=== PATIENT | male | born 1945 | race Caucasian/White ===

== ENCOUNTER 2020-04-14 16:51 | Outpatient (CLI) | payer MEDICARE, OTHER, SELFPAY ==
--- NOTE | ~2020-04-14 | XR_ITS ---
EXAMINATION: XR foot RT min 3V DATE: 04/14/2020 17:29 INDICATION: Foot ulcer at the right great toe presenting with pain. TECHNIQUE: Dorsoplantar, two oblique and lateral views of the right foot foot were obtained. COMPARISON: None. FINDINGS: Hyperflexion at the right first interphalangeal joint. Alignment is otherwise normal. No fracture. Os teolysis consistent with osteomyelitis at the tuft of the right first distal phalanx. 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 Mild ost eoarthritis at many of the remaining joints in the right mid and forefoot. Moderate-sized Achilles an d plantar calcaneal spurs. IMPRESSION: 1. Osteomyelitis at the tuft of the right great toe. 2. 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 Reviewed, dictated and finalized at location A. LER
== END 2020-04-14 16:52 | disposition home or self-care (01) ==
LOC: CHSLAB 16:54
PROVIDERS: PCP Internal Medicine; Visit Provider Podiatrist
DX: E11.621 Type 2 diabetes mellitus with foot ulcer (principal)
CPT/HCPCS: 73630

== ENCOUNTER 2020-04-22 02:25 | Outpatient (CLI) | payer MEDICARE, OTHER, SELFPAY ==
[2020-04-22 18:45] LABS: SARS-CoV-2 RNA PCR Negative
== END 2020-04-22 02:26 | disposition home or self-care (01) ==
LOC: ANHCOVIDDT 02:25
PROVIDERS: PCP Internal Medicine; Visit Provider Podiatrist
DX: Z01.818 Encounter for other preprocedural examination (principal); Z20.828 Contact with and (suspected) exposure to other viral communicable diseases
CPT/HCPCS: 87635; C9803; U0003

== ENCOUNTER 2020-04-22 09:06 | Outpatient (CLI) | payer MEDICARE, OTHER, SELFPAY ==
--- NOTE | 2020-04-22 09:09 | ECG_ITS ---
Measurements Intervals [place] Rate: 104 P: 5 [place]: 185 QRS: 44 QRSD: 94 T: 115 QT: 350 QTc: 461 Interpretive Statements SINUS TACHYCARDIA MINIMAL Q WAVES- INFERIOR LEADS BORDERLINE ST-T WAVE ABNORMALITY- HIGH LATERAL LEADS BORDERLINE ECG Electronically Signed On 04-22-2020 10:39:16 DELIVERY TABLE OPERATOR by Enrike Sumner D.O.
[2020-04-22 10:00] LABS: Hematocrit 33.1 % (42.0-52.0); Hemoglobin 11.1 g/dL (14.0-18.0)
[2020-04-22 10:11] LABS: Prothrombin Time 13.4 Seconds (11.1-14.7)
[2020-04-22 10:12] LABS: Partial Thromboplastin Time 25.9 SECONDS (22.3-36.8)
[2020-04-22 10:14] LABS: Anion Gap 12 mmol/L (8-16); Blood Urea Nitrogen 42 mg/dL (9-20); Calcium 8.9 mg/dL (8.4-10.2); Carbon Dioxide 28 mmol/L (22-30); Chloride 95 mmol/L (98-107); Estimated Glomerular Filt Rate 9; Glucose 286 mg/dL (75-110); Potassium 4.8 mmol/L (3.4-5.0); Sodium 135 mmol/L (137-145)
== END 2020-04-22 09:07 | disposition home or self-care (01) ==
PROVIDERS: Anesthesiology; PCP Internal Medicine; Visit Provider Podiatrist
DX: E11.9 Type 2 diabetes mellitus without complications (principal); D64.9 Anemia, unspecified; I12.9 Hypertensive chronic kidney disease with stage 1 through stage 4 chronic kidney disease, or unspecified chronic kidney disease; N17.9 Acute kidney failure, unspecified; N18.9 Chronic kidney disease, unspecified; Z01.818 Encounter for other preprocedural examination
CPT/HCPCS: 36415; 80048; 85014; 85018; 85610; 85730; 87635; 93005; C9803; U0003

== ENCOUNTER 2020-04-25 01:46 | Day surgery (SDC) | payer MEDICARE, OTHER, SELFPAY ==
[2020-04-20 09:46] VITALS: BMI 39.0
[2020-04-25 12:28] VITALS: BP 127/60; PULSE 65; RESP 20; TEMP 37; O2SAT 95
[2020-04-25] MEDS: SODIUM CHLORIDE 0.9% IV 500 ML 30 ML IV CONT (13:10)
[2020-04-25 13:22] LABS: Anion Gap 13 mmol/L (8-16); Blood Urea Nitrogen 69 mg/dL (9-20); Calcium 8.6 mg/dL (8.4-10.2); Carbon Dioxide 26 mmol/L (22-30); Chloride 94 mmol/L (98-107); Estimated CRCL calculation 8 ml/min; Estimated Glomerular Filt Rate 6; Glucose 119 mg/dL (75-110); Potassium 5.4 mmol/L (3.4-5.0); Sodium 133 mmol/L (137-145)
--- NOTE | 2020-04-25 13:51 | WPDANESEPPF ---
Anes - Initial Pre Proc Eval Procedure: Operation Date: 04/25/20 14:30 Proposed Procedures p Partial Amputation Of the Interphalangeal Joint Right Hallux - Emery Honeycutt DPM Date/Time: 04/25/20 13:51 Surgeon: Emery Honeycutt DPM Pre Op Diagnosis: Osteomyelitis Patient Data Age: 74 Gender: M Height: 1.75 m Weight: 114.7 kg Last Vital Signs Temp 37.0 C 04/25/20 12:28 Pulse 65 04/25/20 12:28 Resp 20 04/25/20 12:28 BP 127/60 04/25/20 12:28 Pulse Ox 95 04/25/20 12:28 Allergies Allergy/AdvReac Type Severity Reaction Status Date / Time No Known Allergies Allergy Verified 04/20/20 09:23 Home Medications Medication Instructions Recorded Confirmed Type Lantus U-100 Insulin 60 unit SUBCUT QAM 03/26/19 04/25/20 History atorvastatin [Lipitor] 40 mg PO DAILY 03/26/19 04/25/20 History insulin lispro [Humalog U-100 15 unit SUBCUT TID 03/26/19 04/25/20 History Insulin] isosorbide mononitrate 60 mg PO DAILY 03/26/19 04/25/20 History lisinopril [Zestril] 40 mg PO DAILY 03/26/19 04/25/20 History cephalexin 500 mg PO Q8HR #0 cap 03/29/19 04/25/20 Rx aspirin [Aspir-81] 81 mg PO DAILY 04/20/20 04/25/20 History coenzyme Q10 [Co Q-10] 100 mg PO DAILY 04/20/20 04/25/20 History folic acid 0.4 mg PO DAILY 04/20/20 04/25/20 History dvhkrxjjrwdz-tmpqvzxf-bpkngr 1 tablet PO DAILY 04/20/20 04/25/20 History [Multivitamin 50 Plus] ropinirole 0.5 mg PO HS 04/20/20 04/25/20 History sevelamer carbonate 1,600 mg PO TID 04/20/20 04/25/20 History Laboratory Tests 04/25/20 12:57 Sodium 133 mmol/L L mmol/L (137-145) Potassium 5.4 mmol/L H mmol/L (3.4-5.0) Chloride 94 mmol/L L mmol/L (98-107) Carbon Dioxide 26 mmol/L mmol/L (22-30) Anion Gap 13 mmol/L mmol/L (8-16) BUN 69 mg/dL H D mg/dL (9-20) Creatinine 9.00 mg/dL H mg/dL (0.7-1.3) Estim Creat Clear Calc 8 ml/min ml/min Estimated GFR 6 L (59 - ) Glucose 119 mg/dL H mg/dL (75-110) Calcium 8.6 mg/dL mg/dL (8.4-10.2) Patient hx anesthesia problems: none Family hx anesthesia problems: none [facility] Past Medical History Medical History (Updated 04/25/20 @ 13:50 by Omi Collier DO) Acute kidney injury superimposed on CKD CAD (coronary artery disease) of bypass graft CKD stage 3 secondary to diabetes Diabetes Dialysis patient T, TH, Sat HTN (hypertension) Hyperlipidemia EVA (obstructive sleep apnea) Spinal cord compression unable to feel mid-calf and down bilaterally Surgical History Surgical History (System 08/07/19 @ 10:20 by Rhonda Mckeon) History of cataract surgery S/P CABG x 2 S/P CABG x 4 Family History Family History (System 08/07/19 @ 10:20 by Rhonda Mckeon) Father Acute myocardial infarction Mother Acute myocardial infarction Social History Social History (System 08/07/19 @ 10:20 by Rhonda Mckeon) Smoking status: Former smoker Second hand tobacco smoke exposure: No Additional smoking assessment comments: SMOKED 4 YEARS WHEN IN THE [employer] Alcohol intake: former Alcohol use details: DRANK SOCIALLY IN HIS 20'S Substance use: never Substance use type: does not use Living arrangements: with family Gender identity (if verbalized by the patient): Male Spiritual care concerns: No Agree to blood products: Yes Anes - Eval Final PreProcedure Day of Procedure 04/25/20 13:51 Patient weight: obese Heart: regular rate and rhythm and murmur Lungs: clear to auscultation and normal air movement Airway: Mallampati scale class III Neurological: alert and oriented Last oral intake: >/= 8 hours ASA classification: IV Emergent: no Anesthetic plan: proceed Anesthesia type and monitoring: general GIVS and standard monitoring Informed Consent: The patient's anesthetic plan and its attendant risks and benefits were discussed with the patient/family/POA. Questions were solicited and answers provided to the satisfa
--- NOTE | 2020-04-25 14:00 | PM.HPGS ---
History of Present Illness History of Present Illness Consent: Risks, benefits, and alternatives have been discussed and questions answered. Patient agrees to proceed with procedure. Chief complaint: Osteomyelitis Narrative: Jacob Rahman is a 74 year old male [facility] Past Medical History Medical History (Updated 04/25/20 @ 14:01 by Emery Honeycutt DPM) Acute kidney injury superimposed on CKD CAD (coronary artery disease) of bypass graft CKD stage 3 secondary to diabetes Diabetes Dialysis patient T, TH, Sat HTN (hypertension) Hyperlipidemia EVA (obstructive sleep apnea) Spinal cord compression unable to feel mid-calf and down bilaterally Surgical History Surgical History (System 08/07/19 @ 10:20 by Rhonda Mckeon) History of cataract surgery S/P CABG x 2 S/P CABG x 4 Family History Family History (System 08/07/19 @ 10:20 by Rhonda Mckeon) Father Acute myocardial infarction Mother Acute myocardial infarction Social History Social History (System 08/07/19 @ 10:20 by Rhonda Mckeon) Smoking status: Former smoker Second hand tobacco smoke exposure: No Additional smoking assessment comments: SMOKED 4 YEARS WHEN IN THE [employer] Alcohol intake: former Alcohol use details: DRANK SOCIALLY IN HIS 20'S Substance use: never Substance use type: does not use Living arrangements: with family Gender identity (if verbalized by the patient): Male Spiritual care concerns: No Agree to blood products: Yes Meds Home Medications and Allergies Home Medications Medication Instructions Recorded Confirmed Type Lantus U-100 Insulin 60 unit SUBCUT QAM 03/26/19 04/25/20 History atorvastatin [Lipitor] 40 mg PO DAILY 03/26/19 04/25/20 History insulin lispro [Humalog U-100 15 unit SUBCUT TID 03/26/19 04/25/20 History Insulin] isosorbide mononitrate 60 mg PO DAILY 03/26/19 04/25/20 History lisinopril [Zestril] 40 mg PO DAILY 03/26/19 04/25/20 History cephalexin 500 mg PO Q8HR #0 cap 03/29/19 04/25/20 Rx aspirin [Aspir-81] 81 mg PO DAILY 04/20/20 04/25/20 History coenzyme Q10 [Co Q-10] 100 mg PO DAILY 04/20/20 04/25/20 History folic acid 0.4 mg PO DAILY 04/20/20 04/25/20 History kkixihmcrwsz-gcsfmbca-mtaaow 1 tablet PO DAILY 04/20/20 04/25/20 History [Multivitamin 50 Plus] ropinirole 0.5 mg PO HS 04/20/20 04/25/20 History sevelamer carbonate 1,600 mg PO TID 04/20/20 04/25/20 History Allergies Allergy/AdvReac Type Severity Reaction Status Date / Time No Known Allergies Allergy Verified 04/20/20 09:23 Vital Signs Vital Signs - 24 hr 04/25/20 12:28 Temperature 37.0 C Pulse Rate 65 Respiratory Rate 20 Blood Pressure 127/60 Pulse Oximetry 95 Assessment and Plan Assessment and plan (1) Osteomyelitis of ankle and foot: Code(s): M86.9 - Osteomyelitis, unspecified Status: Acute Assessment and Plan: Osteomyelitis, right hallux Plan for partial amputation, right hallux.
[2020-04-25] MEDS: ceFAZolin 2 GM/D5W 50 ML 2 GM/50 ML BAG IVPB (14:26)
[2020-04-25] MEDS: LIDOCAINE HCL 1% LOCAL INJ 10 ML VIAL 20 ML INFILTRATE (14:35)
--- NOTE | 2020-04-25 14:54 | SUR.OPER ---
Injection of right foot per Dr. Honeycutt at 1435. total 20ml of local mix.
--- NOTE | 2020-04-25 15:22 | P.OP_ITS ---
Procedure Note - Detailed Date of procedure: 04/25/20 Pre-op diagnosis: Osteomyelitis Surgeon: Surgeon: Emery Honeycutt DPM Slope Hoist Operator: none Preop diagnosis: 1. Osteomyelitis, right hallux 2. DMII with ulceration/cellulitis Postop diagnosis: same Procedure: Partial amputation, right hallux Anesthesia: Local Hemostasis: Ankle TQ 225 mmHg EBL: 5cc Materials: 4-0 prolene Injectables: 20cc of a 1:1 mixture of 1% lidocaine plain and 0.5% marcaine plain Specimen: 1. Distal phalanx, right hallux. 2. Clearance fragment (head of proximal phalanx of hallux) Procedure in detail: Under mild sedation patient was brought in the operating room placed on the operative table supine position. Well-padded pneumatic ankle tourniquet was then placed about the patient's right ankle. Local anesthesia was injected about the patient's right 1st ray in a Anderson block fashion utilizing a total 20 cc of a 1 1 mixture of 1% lidocaine plain and 0.5% Marcaine plain. Foot was then scrubbed prepped and draped in usual aseptic manner. An Esmarch bandage was utilized to exsanguinate the patient's foot. Pneumatic ankle tourniquet was inflated to 225 mmHg. Utilizing a sharp sterile 15 blade the distal aspect of the right hallux was carefully disarticulated at the level of the IPJ. Please note that the base of the distal phalanx was noted to be fragmented and nonviable, soft upon examination. The soft tissue and bone which is encompassed by these 2 semielliptical incisions was carefully passed from the field to be sent for specimen labeled distal phalanx right hallux. All nonviable soft tissue was then carefully debrided and removed from the field. The head of the proximal phalanx was then carefully resected, utilizing a sagittal saw to be sent for specimen labeled clearance fragment. Please note that upon using the sagital saw, the head of the proximal phalanx was noted to be hard and viable. No deep abscess was observed upon final examination. All remaining soft tissue and bone was noted to be healthy and viable. The wound was then flushed with copious amounts normal sterile saline. Four 0 Prolene was used to reapproximate the superficial skin. Upon completion of the procedure incision was dressed with Xeroform and covered with sterile compressive dressing consisting of 4x4s Kerlix and Coban. The pneumatic ankle tourniquet was deflated and a prompt hyperemic response was noted to the remaining digits of the right foot. Patient transferred to recovery room with vital signs stable and vascular status intact to the right foot. Following a period of postoperative monitoring the patient will be discharged home.
[2020-04-25 15:25] VITALS: BP 125/45; PULSE 92; RESP 14; O2SAT 97
[2020-04-25 15:50] LABS: Glucose Point of Care 78 (65-105)
[2020-04-25 16:00] VITALS: BP 131/46; PULSE 90; RESP 16
[2020-04-25 16:15] VITALS: BP 134/59; PULSE 89; RESP 16
== END 2020-04-25 16:35 | disposition home or self-care (01) ==
PROVIDERS: Anesthesiology; PCP Internal Medicine; Visit Provider Podiatrist
PROC: (CPT 28825; principal; 2020-04-25 14:30)
DX: E11.69 Type 2 diabetes mellitus with other specified complication (principal); M86.8X7 Other osteomyelitis, ankle and foot; E11.621 Type 2 diabetes mellitus with foot ulcer; L97.519 Non-pressure chronic ulcer of other part of right foot with unspecified severity; I12.9 Hypertensive chronic kidney disease with stage 1 through stage 4 chronic kidney disease, or unspecified chronic kidney disease; E11.22 Type 2 diabetes mellitus with diabetic chronic kidney disease; N18.30 Chronic kidney disease, stage 3 unspecified; E78.5 Hyperlipidemia, unspecified; I25.10 Atherosclerotic heart disease of native coronary artery without angina pectoris; G47.33 Obstructive sleep apnea (adult) (pediatric); G95.20 Unspecified cord compression; Z99.2 Dependence on renal dialysis; Z79.4 Long term (current) use of insulin; Z79.82 Long term (current) use of aspirin; Z79.1 Long term (current) use of non-steroidal anti-inflammatories (NSAID); Z87.891 Personal history of nicotine dependence; E66.9 Obesity, unspecified; Z68.37 Body mass index [BMI] 37.0-37.9, adult
CPT/HCPCS: 28825; 36415; 80048; 88304; 88305; 88309; 88311; J0690; J2405; J2704; J7040

== ENCOUNTER 2020-06-10 13:31 | Emergency (ER) | payer MEDICARE, SELFPAY ==
--- NOTE | ~2020-06-10 | XR_ITS ---
EXAMINATION: XR chest 1V portable DATE: 06/10/2020 14:18 INDICATION: Weakness. TECHNIQUE: A single frontal view of the chest was obtained on 2 radiographs. COMPARISON: Chest single view 03/26/2019 FINDINGS: The chest demonstrates clear lungs without pneumonia, pleural effusion, or pneumothorax. Th e heart size is normal. Median sternotomy wires and mediastinal surgical clips are seen, likely from prior coronary artery bypass grafting. IMPRESSION: 1. No acute cardiopulmonary disease. Reviewed, dictated and finalized at location A. ND OPERATOR
[2020-06-10 13:35] VITALS: BP 110/51; PULSE 100; RESP 20; TEMP 36.8; O2SAT 100
--- NOTE | 2020-06-10 13:40 | ED.WEAKNESS ---
HPI - Weakness General Chief complaint: Weakness Stated complaint: ambulance Time Seen by Provider: 06/10/20 13:41 Source: patient Mode of arrival: EMS Limitations: no limitations History of Present Illness HPI Narrative: 74ar-old man with a history of chronic kidney disease on dialysis, diabetes, hypertension and spinal cord compression comes in today by EMS with a complaint of weakness. Patient states that he has been getting around at home using a walker but today was weak and unable to get off the toilet. States he sat there for 45 minutes. He has diabetic neuropathy of the lower extremities bilaterally and was recently treated for right foot osteomyelitis and had a great toe amputation. His has been caring for him at home since [facility]. He denies any chest pain, cough, shortness breath, leg pain, focal weakness, confusion, nausea, vomiting, diarrhea or fever. He denies any sick or COVID exposures. MD Complaint: generalized weakness Onset (ago): hour(s) (1) Duration: constant Location: generalized Migration: none Severity: moderate Relieving factors: none Exacerbating factors: none Associated symptoms: denies other symptoms Related Data Home Medications Medication Instructions Recorded Confirmed Lantus U-100 Insulin 60 unit SUBCUT QAM 03/26/19 06/10/20 atorvastatin [Lipitor] 40 mg PO DAILY 03/26/19 06/10/20 insulin lispro [Humalog U-100 15 unit SUBCUT TIDWMEAL 03/26/19 06/10/20 Insulin] isosorbide mononitrate 30 mg PO DAILY 03/26/19 06/10/20 aspirin [Aspir-81] 81 mg PO DAILY 04/20/20 06/10/20 coenzyme Q10 [Co Q-10] 100 mg PO DAILY 04/20/20 06/10/20 folic acid 0.4 mg PO DAILY 04/20/20 06/10/20 xepscnfocnqq-rstzghbb-zuxktu 1 tablet PO DAILY 04/20/20 06/10/20 [Multivitamin 50 Plus] ropinirole 0.5 mg PO HS 04/20/20 06/10/20 sevelamer carbonate [Renvela] 1,600 mg PO TIDWMEAL 04/20/20 06/10/20 carvedilol 3.125 mg PO BID 06/10/20 06/10/20 Allergies Allergy/AdvReac Type Severity Reaction Status Date / Time No Known Allergies Allergy Verified 04/20/20 09:23 Review of Systems Constitutional: Constitutional: Denies chills, Denies fever(s) and Reports weakness Eyes: Eyes: Denies change in vision and Denies photophobia ENT: Denies dysphagia, Denies nasal congestion and Denies sore throat Cardiovascular: Cardiovascular: Denies chest pain and Denies radiating jaw, neck or arm pain Respiratory: Respiratory: Denies cough and Denies dyspnea Gastrointestinal: Gastrointestinal: Denies abdominal pain, Denies diarrhea, Denies nausea and Denies vomiting Genitourinary: Genitourinary: Reports oliguria, Denies dysuria and Denies urinary frequency Musculoskeletal: Musculoskeletal: Denies arthralgias and Denies joint swelling Integumentary/Breasts: Skin/Breast: Denies pruritus, Denies erythema and Denies rash Neurologic: Denies vertigo, Denies dizziness and Denies syncope Hematologic/Lymphatic: Hematologic/Lymphatic: Denies easy bleeding and Denies easy bruising Allergic/Immunologic: Allergic/Immunologic: Denies lip swelling and Denies throat swelling PMFSH Past Medical History Medical History Acute kidney injury superimposed on CKD CAD (coronary artery disease) of bypass graft CKD stage 3 secondary to diabetes Diabetes Dialysis patient T, TH, Sat HTN (hypertension) Hyperlipidemia EVA (obstructive sleep apnea) Spinal cord compression unable to feel mid-calf and down bilaterally Surgical History Surgical History History of cataract surgery S/P CABG x 2 S/P CABG x 4 Family History Family History (System 08/07/19 @ 10:20 by Rhonda Mckeon) Father Acute myocardial infarction Mother Acute myocardial infarction Social History Social History Smoking status: Former smoker Second hand tobac
--- NOTE | 2020-06-10 13:48 | ECG_ITS ---
Measurements Intervals [place] Rate: 91 P: 15 [place]: 192 QRS: 44 QRSD: 90 T: 114 QT: 372 QTc: 458 Interpretive Statements SINUS RHYTHM WITH SINUS ARRHYTHMIA INCOMPLETE RIGHT BUNDLE BRANCH BLOCK NONSPECIFIC ST & T-WAVE ABNORMALITY- HIGH LATERAL LEADS BASELINE ARTIFACT- II, III, AVR, AVL, AVF BORDERLINE ECG Electronically Signed On 06-10-2020 16:46:45 FACSIMILE MACHINE OPERATOR by Enrike Sumner D.O.
[2020-06-10 14:29] LABS: Basophils Absolute Auto 0.02 K/mm3 (0.00-0.10); Basophils Percent Auto 0.2 % (0.0-1.0); Eosinophils Absolute Auto 0.07 K/mm3 (0.02-0.50); Eosinophils Percent Auto 0.8 % (1.0-6.0); Hemoglobin 11.2 g/dL (12.4-15.3); Immature Granulocyte Absolute 0.03 K/mm3 (0.00-0.00); Immature Granulocyte Percent A 0.3 % (0.0-0.0); Lymphocytes Absolute Auto 1.54 K/mm3 (1.10-4.50); Lymphocytes Percent Auto 16.7 % (18.0-42.0); Mean Corpuscular HGB Conc 33.9 g/dL (32.0-36.0); Mean Corpuscular Hemoglobin 35.4 pg (27.0-31.0); Mean Corpuscular Volume 104.4 fL (78.0-102.0); Monocytes Absolute Auto 1.14 K/mm3 (0.10-0.90); Monocytes Percent Auto 12.3 % (2.0-11.0); Neutrophils Absolute Auto 6.4 K/mm3 (1.7-7.2); Neutrophils Percent Auto 69.7 % (50.0-70.0); Platelet Count Result 191 K/mm3 (150-420); Red Blood Count 3.16 M/mm3 (4.70-6.10); Red Cell Distribution Width 15.5 % (11.6-14.4); White Blood Count 9.2 K/mm3 (4.8-10.8)
[2020-06-10 14:48] LABS: Lactic Acid Reflex 1.8 mmol/L (0.4-2.0)
[2020-06-10 14:50] LABS: Alanine Aminotransferase 15 U/L (16-63); Albumin Level 3.4 g/dL (3.4-5.0); Alkaline Phosphatase 113 U/L (46-116); Anion Gap 12 mmol/L (8-16); Aspartate Amino Transferase 13 U/L (15-37); Bilirubin,Total 0.7 mg/dL (0.00-1.00); Blood Urea Nitrogen 35 mg/dL (7-18); CRP 0.7 mg/dL (0.0-0.9); Calcium 8.9 mg/dL (8.5-10.1); Carbon Dioxide 26 mmol/L (21-32); Chloride 96 mmol/L (98-108); Creatine Kinase 85 U/L (39-308); Estimated CRCL calculation 14 ml/min; Estimated Glomerular Filt Rate 10; Glucose 186 mg/dL (70-99); Osmolality Calculated 291 mOsm/kg (285-295); Potassium 4.7 mmol/L (3.5-5.1); Sodium 134 mmol/L (136-145); Total Protein 7.8 g/dL (6.4-8.2)
[2020-06-10 14:51] LABS: Troponin I 15.7 ng/L (0.00-60.4)
--- NOTE | 2020-06-10 14:52 | PC.NURSE ---
PT notified per ERP request for pt. evaluation and care coordination here to speak c pt and to discuss POC and home care situation.
[2020-06-10 15:18] LABS: INR 0.9; Prothrombin Time 10.1 Seconds (9.64-11.0)
--- NOTE | 2020-06-10 15:49 | PC.NURSE ---
Call placed to Dr. Lozada, nephrology office for Dr. Gaitan per request to talk c him and consult. Will await callback from Dr. Lozada.
[2020-06-10 15:59] LABS: Partial Thromboplastin Time 21.7 SEC (23.90-30.70)
--- NOTE | 2020-06-10 16:13 | PC.NURSE ---
Call placed back to Dr. Lozada office, transferred to speak c Dr. Gaitan for consult.
--- NOTE | 2020-06-10 16:26 | PC.NURSE ---
Call placed to [facility] for possible pt. transfer for dialysis and admission.
--- NOTE | 2020-06-10 16:58 | PCCCNOTE ---
Patient lives with and is usually able to ambulate with walker- assists care as able. Patient also recieving dialysis at [facility] in [place] at 11;45 on Saturday- and Saturday. Patient states now feels unable to stand on right leg- which seemed to be weaker the last 2 days and gave out today. Was unable to get up from the toilet. and patient feel he needs rehab to get stronger and not sure they can return home without help. PT rolly done- report from Prabhakar Keith who states patient ambulated well- but c/o pain with using steps. Patient has 3-4 steps into home. Patient usually uses [facility] transport for dailysis. Call to 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 Call to Jordana at [facility]- ability to transport to dialysis would be on a case by case basis. states is familiar with [place]- call to [facility] at [place]-for [place] and [place]- - states they would be able to accept-in [place] building on waiver- but would have to transport to Dialysis until patient could be transitioned to [facility]. After he is transitioned they would provided transportation. Spoke with who advised she doesn't even know where [place] is- and this would not be a good solution for her. states she does have her brother to assist with getting patient in and out of house for tomorrow if needed- patient states does not feel he is strong enoiugh to do so. ER staff provided with information regarding [place]'s address and phone # of [facility] for possible placement need. Dr Gaitna is considering transfer to hospital that can accommodate his dialysis needs.
[2020-06-10 17:32] VITALS: BP 120/54; PULSE 95; RESP 20; O2SAT 100
--- NOTE | 2020-06-10 17:48 | PC.NURSE ---
Call back from Dr. Vizcaino, technical associate to speak c Dr. Gaitan. Will accept consult and transfer. Paperwork signed by pt. for transfer.
--- NOTE | 2020-06-10 18:50 | PC.NURSE ---
Report to Zaina RN
--- NOTE | 2020-06-10 18:55 | PC.NURSE ---
oriented to new care givers.
[2020-06-10 19:25] LABS: Glucose Point of Care 97 (65-105)
[2020-06-10 19:33] VITALS: BP 120/60; PULSE 90; RESP 18; TEMP 36.6; O2SAT 100
--- NOTE | 2020-06-10 19:33 | PC.NURSE ---
gave patient a sandwich & diet soda
--- NOTE | 2020-06-10 20:10 | PC.NURSE ---
Called [facility] to check on bed status, cont to attempt to find a room
[2020-06-10 21:00] VITALS: BP 120/70; PULSE 90; RESP 16; TEMP 36.8; O2SAT 100
== END 2020-06-10 21:02 | disposition short-term general hospital (02) ==
PROVIDERS: Emergency Provider Emergency Medicine; PCP Internal Medicine
DX: R53.1 Weakness (principal); N18.6 End stage renal disease; Z99.2 Dependence on renal dialysis; I25.10 Atherosclerotic heart disease of native coronary artery without angina pectoris; E11.9 Type 2 diabetes mellitus without complications; I12.9 Hypertensive chronic kidney disease with stage 1 through stage 4 chronic kidney disease, or unspecified chronic kidney disease; E78.5 Hyperlipidemia, unspecified; Z87.891 Personal history of nicotine dependence; Z79.4 Long term (current) use of insulin
CPT/HCPCS: 36415; 71045; 80053; 82550; 82948; 83605; 84484; 85025; 85610; 85730; 86140; 87040; 93005; 97161; 99285; J1815

== ENCOUNTER 2020-07-11 14:53 | Outpatient (CLI) | payer MEDICARE, SELFPAY ==
--- NOTE | ~2020-07-11 | US_ITS ---
EXAMINATION: US arterial ankle brachial ind EXAM DATE: 07/11/2020 15:38 INDICATION: Peripheral arterial disease Legs. Right great toe amputated. TECHNIQUE: Segmental pressures and plethysmographic and Doppler waveforms of the brachial and lower e xtremity arteries were obtained. Correlation is made to Lower extremity arterial velocity evaluation 12/28/2016 FINDINGS: Right brachial artery pressure of 118 mmHg. The left was not obtained, reportedly dialysis graft in dylan rojas. RIGHT LEG: The ankle-brachial index (SUSANNAH) is could not obtain (normal >= 0.9-1). The great toe-brachial index (TBI) is could not obtain (normal >= 0.65). The lower extremity ratios, segmental pressure gradients as follows; Dorsalis pedis: Could not obtain ( mmHg). Posterior tibial: Could not obtain ( mmHg). (Normal gradients <= 20-30 mmHg between adjacent levels on the same leg or the same levels on the two legs). Arterial waveforms are monophasic. LEFT LEG: The ankle-brachial index (SUSANNAH) is could not obtain (normal >= 0.9-1). The great toe-brachial index (TBI) is could not obtain (normal >= 0.65). The lower extremity ratios, segmental pressure gradients as follows; Dorsalis pedis: Could not obtain ( mmHg). Posterior tibial: Could not obtain ( mmHg). (Normal gradients <= 20-30 mmHg between adjacent levels on the same leg or the same levels on the two legs). Arterial waveforms are biphasic DP, monophasic PT. IMPRESSION: Could not obtain ankle brachial indices. Reviewed, dictated and finalized at location A. X MACHINE MECHANIC
== END 2020-07-11 14:54 | disposition home or self-care (01) ==
PROVIDERS: PCP Internal Medicine; Visit Provider Internal Medicine
DX: I73.9 Peripheral vascular disease, unspecified (principal)
CPT/HCPCS: 93922

== ENCOUNTER 2020-12-12 13:47 | Outpatient (RCR) | payer MEDICARE, SELFPAY ==
--- NOTE | 2020-12-12 15:02 | PTOPEVAL ---
Thank you for referring Jacob Rahman to [facility].? The patient is scheduled to be seen for therapy? ____x/week for ___ weeks. Please review, sign, date and return this plan of care TREVON. I agree with and certify that the following plan of care is medically necessary. Referring Physician Date Admitting Provider: Attending Provider: [place] Referring Provider: *PT Outpatient Evaluation Start: 12/12/20 13:52 Freq: Status: Active Protocol: Document 12/12/20 13:52 ACR (Rec: 12/12/20 15:02 ACR [id number]) Therapy Assessment Status Assessment Status Assessment Status Evaluation Outpatient Past Medical History Neurological History Hx Other Neurological Disorders Yes: UNABLE TO FEEL MID-CALF & DOWN BILAT R/T BACK SURG/ SPINAL CORD COMPRESSION Cardiovascular History Hx Cardiac Surgery Yes Hx Congestive Heart Failure Yes Hx Coronary Artery Bypass Graft Yes: CABG X2 1999 & 2004 Hx Hypercholesterolemia Yes Hx Hypertension Yes Hx Myocardial Infarction Yes: AT 33 YEARS OLD Hx Vascular Surgery Yes: 05/2019 SURG TO CLEAR CLOT IN LT LOWER ARM DIALYSIS [facility] Hx Other Cardiac Disorders Yes: DR FERRIS PLANNED VISIT 04/26/20 Respiratory History Hx Chronic Obstructive Pulmonary Disease Yes (COPD) Hx Sleep Apnea Yes Hx Other Respiratory Disorders Yes: DEEP COUGH IN THE MORNING Gastrointestinal History Hx Gastroesophageal Reflux Disease Yes: AT TIMES Genitourinary History Hx Renal Disease Yes: CHRONIC RENAL FAILURE + ACUTE RENAL FAILURE Musculoskeletal History Hx Back Injury Yes Hx Crutches or Walker Use Yes: CURRENTLY USES WALKER Query Text:If Yes, Enter Crutches, Walker, or Both in the Comment Hx Orthopedic Surgery Yes: Rt. great toe amputation Hx Spinal Surgery Yes: LOWER BACK SURGERY Hematological History Hx Anemia Yes: R/T RENAL DISEASE HX- TRANSFUSIONS Hx Blood Transfusions Yes: 05/2019 Endocrine History Hx Diabetes Yes HEENT History Hx Cataracts Yes: BILAT IMPLANTS Hx Tonsillectomy Yes: CHILD Integumentary History Hx Other Skin Disorders Yes: OSTEOMYELITIS RT GREAT TOE, DEEP SCRATCH RT ARM Reproductive History Hx Reproductive Disorders No Significant History Psychosocial History Hx Anxiety Yes: MILD Hx Depression Yes: MILD Pain History Has Past Pain Affected Your Daily Life Yes: JODI
--- NOTE | 2021-01-02 11:53 | PTOPEVAL ---
Thank you for referring Jacob Rahman to [facility].? The patient is scheduled to be seen for therapy? ____x/week for ___ weeks. Please review, sign, date and return this plan of care TREVON. I agree with and certify that the following plan of care is medically necessary. Referring Physician Date Admitting Provider: Attending Provider: El Leon Referring Provider: *PT Outpatient Evaluation Start: 12/12/20 13:52 Freq: Status: Active Protocol: Document 01/02/21 10:02 ACR (Rec: 01/02/21 11:07 ACR [id number]) Therapy Assessment Status Assessment Status Assessment Status Evaluation Outpatient Past Medical History Neurological History Hx Other Neurological Disorders Yes: UNABLE TO FEEL MID-CALF & DOWN BILAT R/T BACK SURG/ SPINAL CORD COMPRESSION Cardiovascular History Hx Cardiac Surgery Yes Hx Congestive Heart Failure Yes Hx Coronary Artery Bypass Graft Yes: CABG X2 1999 & 2004 Hx Hypercholesterolemia Yes Hx Hypertension Yes Hx Myocardial Infarction Yes: AT 33 YEARS OLD Hx Vascular Surgery Yes: 05/2019 SURG TO CLEAR CLOT IN LT LOWER ARM DIALYSIS FISTULA Hx Other Cardiac Disorders Yes: DR FERRIS PLANNED VISIT 04/26/20 Respiratory History Hx Chronic Obstructive Pulmonary Disease Yes (COPD) Hx Sleep Apnea Yes Hx Other Respiratory Disorders Yes: DEEP COUGH IN THE MORNING Gastrointestinal History Hx Gastroesophageal Reflux Disease Yes: AT TIMES Genitourinary History Hx Renal Disease Yes: CHRONIC RENAL FAILURE + ACUTE RENAL FAILURE Musculoskeletal History Hx Back Injury Yes Hx Crutches or Walker Use Yes: CURRENTLY USES WALKER Query Text:If Yes, Enter Crutches, Walker, or Both in the Comment Hx Orthopedic Surgery Yes: Rt. great toe amputation Hx Spinal Surgery Yes: LOWER BACK SURGERY Hematological History Hx Anemia Yes: R/T RENAL DISEASE HX- TRANSFUSIONS Hx Blood Transfusions Yes: 05/2019 Endocrine History Hx Diabetes Yes HEENT History Hx Cataracts Yes: BILAT IMPLANTS Hx Tonsillectomy Yes: CHILD Integumentary History Hx Other Skin Disorders Yes: OSTEOMYELITIS RT GREAT TOE, DEEP SCRATCH RT ARM Reproductive History Hx Reproductive Disorders No Significant History Psychosocial History Hx Anxiety Yes: MILD Hx Depression Yes: MILD Pain History Has Past Pain Affected Your Daily Life Yes: JODI
--- NOTE | 2021-02-13 11:06 | PTOPEVAL ---
Thank you for referring Jacob Rahman to [facility].? The patient is scheduled to be seen for therapy? ____x/week for ___ weeks. Please review, sign, date and return this plan of care TREVON. I agree with and certify that the following plan of care is medically necessary. Referring Physician Date Admitting Provider: Attending Provider: El Leon Referring Provider: *PT Outpatient Evaluation Start: 12/12/20 13:52 Freq: Status: Active Protocol: Document 02/13/21 10:05 ACR (Rec: 02/13/21 11:06 ACR [id number]) Therapy Assessment Status Assessment Status Assessment Status Discharge Outpatient Past Medical History Neurological History Hx Other Neurological Disorders Yes: UNABLE TO FEEL MID-CALF & DOWN BILAT R/T BACK SURG/ SPINAL CORD COMPRESSION Cardiovascular History Hx Cardiac Surgery Yes Hx Congestive Heart Failure Yes Hx Coronary Artery Bypass Graft Yes: CABG X2 1999 & 2004 Hx Hypercholesterolemia Yes Hx Hypertension Yes Hx Myocardial Infarction Yes: AT 33 YEARS OLD Hx Vascular Surgery Yes: 05/2019 SURG TO CLEAR CLOT IN LT LOWER ARM DIALYSIS FISTULA Hx Other Cardiac Disorders Yes: DR FERRIS PLANNED VISIT 04/26/20 Respiratory History Hx Chronic Obstructive Pulmonary Disease Yes (COPD) Hx Sleep Apnea Yes Hx Other Respiratory Disorders Yes: DEEP COUGH IN THE MORNING Gastrointestinal History Hx Gastroesophageal Reflux Disease Yes: AT TIMES Genitourinary History Hx Renal Disease Yes: CHRONIC RENAL FAILURE + ACUTE RENAL FAILURE Musculoskeletal History Hx Back Injury Yes Hx Crutches or Walker Use Yes: CURRENTLY USES WALKER Query Text:If Yes, Enter Crutches, Walker, or Both in the Comment Hx Orthopedic Surgery Yes: Rt. great toe amputation Hx Spinal Surgery Yes: LOWER BACK SURGERY Hematological History Hx Anemia Yes: R/T RENAL DISEASE HX- TRANSFUSIONS Hx Blood Transfusions Yes: 05/2019 Endocrine History Hx Diabetes Yes HEENT History Hx Cataracts Yes: BILAT IMPLANTS Hx Tonsillectomy Yes: CHILD Integumentary History Hx Other Skin Disorders Yes: OSTEOMYELITIS RT GREAT TOE, DEEP SCRATCH RT ARM Reproductive History Hx Reproductive Disorders No Significant History Psychosocial History Hx Anxiety Yes: MILD Hx Depression Yes: MILD Pain History Has Past Pain Affected Your Daily Life Yes: BACK
== END 2021-02-13 13:40 | disposition home or self-care (01) ==
LOC: CHSPT 13:47
DX: M17.11 Unilateral primary osteoarthritis, right knee (principal)
CPT/HCPCS: 97014; 97110; 97161; 97530; G0283

== ENCOUNTER → 2021-04-26 19:53 | Outpatient (CLI) | payer MEDICARE, SELFPAY ==
--- NOTE | 2021-05-03 16:42 | WPDSLEEPSTUD ---
Sleep Study Date of Study: 04/26/21 Ordering Provider: Lizzy Medina MD Interpreting Physician: Marylu Milligan MD Sleep Study Type: Split Polysomnogram Height: 1.75 m Weight: 117.934 kg Body Mass Index: 38.4 Neck Circumference (inches): 18.5 [place]: 6 Reason for Sleep Study Recall on his BiPAP machine; last titration was > 5 years ago * 03/27/2019 - echo - EF 60-65% * 02/26/2019- basic sleep study; low sleep efficiency 23.9%, AHI 12.1, no REM was present;limb movements 223.9/hour; repeat titration was recommended; no additional sleep study results. * 10/03/2008- AHI 98.5; ASV BiPAP titration with final pressure of inspiratory pressure minimum 15, inspiratory max pressure 25, expiratory pressure 15 and back up rate 16. * 09/02/2008- Severe complex sleep apnea AHI 98.5 and severe periodic limb movement disorder, PLM index 120; desaturation to 72%, failed CPAP titration Sleep History Jacob Rahman is a 75 year old man with severe complex sleep apnea who has a BiPAP machine which has been recalled due to potential health risks. He has not been having any problems using his machine. His current settings are not known. His BMI is lower now compared to his last sleep study in Feb 2019 when his BMI was 44.6. He has a history of severe complex sleep apnea with an AHI of 98.5 with desaturation to 22% and low sleep efficiency, poor response to CPAP and eventual ASV for treatment. He also had severe periodic limb movement disorder with 120 limb movements per hour in 2008 and 223/hour in Feb 2019. He reports 100 lb weight loss in the last year. He is now on hemodialysis. He does not awaken from sleep feeling short of breath. He occasionally awakens at night with heartburn, belching or coughing. He occasionally snores and occasionally it is loud enough for others to complain about it. He does not have trouble sleeping with a cold and does not wake up gasping for breath at night. He rarely has breathing problems at night observed by others. He does not sweat excessively at night or notice his heart pounding or beating irregularly at night. He occasionally falls asleep during the day, never involuntarily. He does not have loss of muscle tone with strong emotion. He is retired therefore does not have daytime difficulties due to excessive sleepiness. He does not feel paralyzed on waking or falling asleep and does not have vivid dreamlike scenes upon awakening or falling asleep. He does not feel afraid to go to sleep. He does not have nightmares. He rarely remembers his dreams. He does not feel sad, depressed or anxious. He does not have muscular tension. He occasionally notices parts of his body jerking and occasional kicking at night. He does not have crawling or aching feelings in his legs. He occasionally has leg pain at night. He does not have morning jaw pain. He does not grind his teeth during sleep. He occasionally is bothered by pain during the day, occasionally awakened by pain at night. He occasionally wakes up feeling stiff in the morning with sore achy muscles and pain in the neck and spine. He is retired. He has headaches and fatigue. Normal bedtime is 10:30 p.m. taking 30-45 minutes fall asleep typically waking 2 or 3 times at night to go to the bathroom. He wakes the morning at 7:00 a.m.. His weekend schedule is the same. He estimates getting 5-6 hours of sleep at night. He takes naps in the afternoon or evening. A short nap 10 or 15 minutes may be refreshing. He feels better in the morning compared to other times of day. Using BiPAP at night he does awaken feeling refreshed. Habits: Quit tobacco 41 years ago. He does consume caffeine. He does not drink alcohol or use recreational drugs PMFSH Past Medical History Medical History (Updated 05/08/21 @ 12:07 by Marylu Milligan MD) Acute kidney injury superimposed on CKD CAD (coronary artery disease) of bypass graft CKD stage 3 secondary to diabetes Complex sleep apnea sy
[2021-05-08 12:08] VITALS: BMI 38.4
== END ==
PROVIDERS: PCP Internal Medicine; Visit Provider Internal Medicine
DX: G47.33 Obstructive sleep apnea (adult) (pediatric) (principal)
CPT/HCPCS: 95811

== ENCOUNTER 2021-05-26 10:42 | Outpatient (CLI) | payer MEDICARE, SELFPAY ==
--- NOTE | ~2021-05-26 | XR_ITS ---
EXAMINATION: XR chest 2V DATE: 05/26/2021 16:25 INDICATION: Cough. TECHNIQUE: Frontal and lateral views of the chest were obtained. COMPARISON: Chest single view 06/10/2020 FINDINGS: The chest demonstrates clear lungs without pneumonia, pleural effusion, or pneumothorax. Th e heart size is normal. Median sternotomy wires and mediastinal surgical clips are seen, likely from prior coronary artery bypass grafting. IMPRESSION: 1. No acute cardiopulmonary disease. Reviewed, dictated and finalized at location B. [facility]ET[facility]
[2021-05-26 11:38] LABS: Influenza Control Valid (Valid); SARS-CoV-2 Ag Negative (Negative)
[2021-05-26 16:24] LABS: Hematocrit 29.9 % (37.0-46.0); Mean Corpuscular HGB Conc 33.4 g/dL (32.0-36.0); Mean Corpuscular Hemoglobin 35.1 pg (27.0-31.0); Mean Corpuscular Volume 104.9 fL (78.0-102.0); Mean Platelet Volume 9.5 fl (8.7-11.0); Platelet Count Result 201 K/mm3 (150-420); Red Blood Count 2.85 M/mm3 (4.70-6.10); Red Cell Distribution Width 15.1 % (11.6-14.4); White Blood Count 5.1 K/mm3 (4.8-10.8)
[2021-05-26 16:37] LABS: Alanine Aminotransferase 15 U/L (16-63); Albumin Level 3.3 g/dL (3.4-5.0); Alkaline Phosphatase 148 U/L (46-116); Anion Gap 12 mmol/L (8-16); Aspartate Amino Transferase < 10 U/L (15-37); Bilirubin,Total 0.4 mg/dL (0.00-1.00); Blood Urea Nitrogen 49 mg/dL (7-18); Calcium 8.5 mg/dL (8.5-10.1); Carbon Dioxide 26 mmol/L (21-32); Chloride 97 mmol/L (98-108); Estimated Glomerular Filt Rate 7; Glucose 102 mg/dL (70-99); NT Pro B Type Natriuretic Pept 3722 pg/mL (0-450); Osmolality Calculated 293 mOsm/kg (285-295); Potassium 4.9 mmol/L (3.5-5.1); Sodium 135 mmol/L (136-145); Total Protein 7.8 g/dL (6.4-8.2)
[2021-05-26 17:03] LABS: Band Neutrophils Percent 0 % (0-6); Basophils Percent Manual 0 % (0-1); Eosinophils Percent Manual 4 % (1-6); Lymphocytes Absolute Manual 0.91 K/mm3 (1.1-4.5); Lymphocytes Percent Manual 18 % (18-44); Monocytes Absolute Manual 1.42 K/mm3 (0.1-0.90); Monocytes Percent Manual 28 % (3-9); Neutrophils Absolute Manual 2.55 K/mm3 (1.3-6.7); Neutrophils Percent Manual 50 % (46-73); Platelet Estimate Adequate (Adequate); Total Cells Counted 100
== END 2021-05-26 10:43 | disposition home or self-care (01) ==
PROVIDERS: PCP Internal Medicine; Visit Provider Internal Medicine
DX: R05.9 Cough, unspecified (principal); I50.9 Heart failure, unspecified; J06.9 Acute upper respiratory infection, unspecified; Z20.822 Contact with and (suspected) exposure to COVID-19
CPT/HCPCS: 36415; 71046; 80053; 83880; 85025; 87081; 87426; 87804; 87880; C9803

== ENCOUNTER 2021-07-05 08:28 | Outpatient (CLI) | payer MEDICARE, SELFPAY ==
--- NOTE | 2021-07-05 08:35 | ECHO_ITS ---
Patient Info Name: Jacob Rahman Age: 75 years : 1945 Gender: Male Ht: 70 in Wt: 255 lbs BSA: 2.43 m2 HR: 93 bpm BP: 140 / 75 mmHg Technical Quality: Poor Exam Date: 07/05/2021 9:22 AM Exam Location: [facility] Patient Status: Outpatient Admit Date: 07/05/2021 Staff Ordering Physician: Lizzy Medina MD Nurse School: [employer] Attending Provider: Lizzy Medina MD Referring Physician: Adam PAGE; Exam Type: CA echo doppler color flow Study Info Indications I51.9 - Heart disease, unspecified Complete two-dimensional, color flow and Doppler transthoracic echocardiogram is performed. Summary 1. Complete two-dimensional, color flow and Doppler transthoracic echocardiogram is performed. 2. Technically suboptimal study due to poor sonographic images. Patient did not consent to definity. 3. Left ventricular systolic function is normal, estimated at 55-60%. No obvious wall motion abnormalities but cannot assess for regional wall motion abnormalities. 4. Left ventricular chamber dimension is normal. 5. The left ventricular diastolic function is grade I diastolic dysfunction. 6. Left atrial chamber dimension is mildly enlarged. 7. There is moderate aortic valve sclerosis. 8. There is mild aortic valve stenosis with a peak velocity of 220 cm/s, mean gradient of 12 mmHg, and aortic valve area of 2.0 cm2. 9. The mitral valve has moderately calcified annulus. Left Ventricle Technically suboptimal study due to poor sonographic images. Patient did not consent to definity. Tissue doppler is not performed. Left ventricular systolic function is normal, estimated at 55-60%. No obvious wall motion abnormalities but cannot assess for regional wall motion abnormalities. Left ventricular chamber dimension is normal. The left ventricular diastolic function is grade I diastolic dysfunction. Right Ventricle Right ventricular systolic function is normal based on a normal TAPSE 1.7 cm. Right ventricular chamber dimension is not well visualized. Left Atria Left atrial chamber dimension is mildly enlarged. Right Atria Right atrial chamber dimension is normal. Aortic Valve The aortic valve is not well visualized. Cannot determine number of aortic valve leaflets. There is moderate aortic valve sclerosis. There is mild aortic valve stenosis with a peak velocity of 220 cm/s, mean gradient of 12 mmHg, and aortic valve area of 2.0 cm2. There is no aortic valve regurgitation. Pulmonic Valve There is no pulmonic regurgitation. Mitral Valve The mitral valve has moderately calcified annulus. There is no mitral valve stenosis. There is no mitral valve regurgitation. Tricuspid Valve There is no tricuspid valve regurgitation. Pericardium/Pleural There is no pericardial effusion. Inferior Vena Cava Normal inferior vena cava with >50% collapse upon inspiration consistent with normal right atrial pressure, 5 mmHg. Aorta The aortic root size at the sinus of Valsalva is not well visualized. Left Ventricular Outflow Tract Name Value Normal LVOT 2D LVOT Diameter 2.0 cm LVOT Doppler LVOT Peak Velocity
== END 2021-07-05 08:29 | disposition home or self-care (01) ==
PROVIDERS: PCP Internal Medicine; Visit Provider Internal Medicine
DX: I50.9 Heart failure, unspecified (principal)
CPT/HCPCS: 93306

== ENCOUNTER 2021-09-02 15:26 | Emergency (ER) | payer MEDICARE, SELFPAY ==
--- NOTE | ~2021-09-02 | XR_ITS ---
EXAM: XR thoracic spine 2V HISTORY: FALL/BACK PAIN COMPARISON: None available FINDINGS: Severe osteopenia. Vertebral body heights and alignment maintained. Multilevel disc space narrowing and marginal osteophytosis. Partially visualized lung parenchyma is clear. Intact sternotom y wires. Mediastinal vascular clips. IMPRESSION: No acute osseous finding in the thoracic spine. Reviewed, dictated and finalized at location K.
--- NOTE | ~2021-09-02 | XR_ITS ---
EXAM: XR lumbar spine 2-3V HISTORY: fall with low back pain COMPARISON: None available FINDINGS: 5 nonrib-bearing lumbar-type vertebral bodies with intact pedicles. 2 mm anterolisthesis o f L4 on L5, likely on a degenerative basis. Mild height loss and both superior and inferior endplate irregularity involving L2. Minimal, presumed physiologic wedging at the thoracolumbar junction. Multi level facet arthropathy and interspinous narrowing. Multilevel lumbar degenerative disc disease. Abdo megan aortic calcification without evident aneurysm. IMPRESSION: Acute versus chronic mild compression fracture at L2, correlate with acute pain/tenderness. Reviewed, dictated and finalized at location K. IMPRESSION: Acute versus chronic mild compression fracture at L2, correlate with acute pain /tenderness.
[2021-09-02 15:35] VITALS: BP 132/68; PULSE 68; RESP 20; TEMP 36.4; O2SAT 99
--- NOTE | 2021-09-02 16:08 | ED.BACK ---
HPI - Back Pain/Injury General Chief Complaint: Back Pain/Injury Stated Complaint: back pain Time Seen by Provider: 09/02/21 16:48 Source: patient History of Present Illness HPI Narrative: 75-year-old male with a history of hypertension, diabetes mellitus, coronary artery disease status post CABG, end-stage renal disease on hemodialysis via left arm AV fistula, COPD, EVA, periodically leg movements, arthritis, spinal cord compression, Status post low back surgery x2, was attempting to walk when he slipped and fell backwards this morning. He then went on to get dialysis. He developed -- low back pain which radiates around his trunk -- pain in the interscapular region. No head injury. No other injuries noted. MD elicited complaint: back pain Pertinent past history: prior back pain and back surgery Onset (ago): hour(s) ( 8 hours ago) Timing: constant Pain scale (0-10): 6 Similar Symptoms Previously: No Quality: aching Location: lumbar spine and thoracic spine Radiation: none Exacerbating factors: movement Relieving factors: immobilization Associated symptoms: denies other symptoms Related Data Home Medications Medication Instructions Recorded Confirmed Lantus U-100 Insulin 60 unit SUBCUT QAM 03/26/19 09/02/21 atorvastatin [Lipitor] 40 mg PO DAILY 03/26/19 09/02/21 insulin lispro [Humalog U-100 15 unit SUBCUT TIDWMEAL 03/26/19 09/02/21 Insulin] isosorbide mononitrate 30 mg PO DAILY 03/26/19 09/02/21 aspirin [Aspir-81] 81 mg PO DAILY 04/20/20 09/02/21 coenzyme Q10 [Co Q-10] 100 mg PO DAILY 04/20/20 09/02/21 folic acid 0.4 mg PO DAILY 04/20/20 09/02/21 qyvoupujyrzr-mtqphxba-nltmey 1 tablet PO DAILY 04/20/20 09/02/21 [Multivitamin 50 Plus] ropinirole 0.5 mg PO HS 04/20/20 09/02/21 sevelamer carbonate [Renvela] 1,600 mg PO TIDWMEAL 04/20/20 09/02/21 carvedilol 3.125 mg PO BID 06/10/20 09/02/21 Allergies Allergy/AdvReac Type Severity Reaction Status Date / Time No Known Allergies Allergy Verified 04/20/20 09:23 Review of Systems Review of Systems: All systems reviewed & are unremarkable except as noted in HPI and below Constitutional: Constitutional: Reports as per HPI and Reports no additional constitutional complaints Eyes: Eyes: Reports as per HPI and Reports no additional eye complaints ENT: Reports system reviewed and no additional complaints, except as documented and Reports as per HPI Cardiovascular: Cardiovascular: Reports as per HPI and Reports no additional cardiovascular complaints Respiratory: Respiratory: Reports as per HPI and Reports no additional respiratory complaints Gastrointestinal: Gastrointestinal: Reports as per HPI and Reports no additional gastrointestinal complaints Genitourinary: Comments: Patient makes minimal urine. Musculoskeletal: Comments: Low back pain in the interscapular region Integumentary/Breasts: Skin/Breast: Reports system reviewed and no additional complaints, except as docu and Reports as per HPI Neurologic: Reports system reviewed and no additional complaints, except as documented and Reports as per HPI Psychiatric: Psychiatric: Reports no additional psychiatric complaints Endocrine: Endocrine: Reports no additional endocrine complaints and Reports as per HPI Hematologic/Lymphatic: Hematologic/Lymphatic: Reports no additional hematologic/lymphatic complaints and Reports as per HPI Allergic/Immunologic: Allergic/Immunologic: Reports no additional allergic/immunologic complaints and Reports as per HPI [facility] Past Medical History Medical History Acute kidney injury superimposed on CKD CAD (coronary artery disease) of bypass graft CKD stage 3 secondary to diabetes Complex sleep apnea syndrome (~2008) COPD (chronic obstructive pulmonary disease) Diabetes Dialysis patient T, TH, Sat HTN (hypertension) Hyperlipidemia Spinal cord compression unable to feel mid-calf and down bilaterally Surgi
[2021-09-02 17:13] LABS: Glucose Point of Care 147 mg/dl (65-105)
[2021-09-02] MEDS: HYDROcodone/acetaminophen (*CRX) 5-325 MG TABLET 1 TAB PO (18:08)
[2021-09-02 18:12] VITALS: BP 124/63; PULSE 63; RESP 20; TEMP 36.3; O2SAT 97
== END 2021-09-02 18:17 | disposition home or self-care (01) ==
PROVIDERS: Emergency Provider Internal Medicine Critical Care Medicine; PCP Internal Medicine
DX: M54.9 Dorsalgia, unspecified (principal); S32.020A Wedge compression fracture of second lumbar vertebra, initial encounter for closed fracture; M54.50 Low back pain, unspecified; I10 Essential (primary) hypertension; E11.9 Type 2 diabetes mellitus without complications; I25.10 Atherosclerotic heart disease of native coronary artery without angina pectoris; W19.XXXA Unspecified fall, initial encounter; Z87.891 Personal history of nicotine dependence
CPT/HCPCS: 72070; 72100; 82948; 99283; A9270

== ENCOUNTER 2021-12-16 07:06 | Emergency (ER) | payer MEDICARE, SELFPAY ==
--- NOTE | ~2021-12-16 | XR_ITS ---
XR pelvis 1-2V DATE: 12/16/2021 07:40 INDICATION: Hip pain due to leg cramps. TECHNIQUE: AP projection, 2 views COMPARISON: None FINDINGS: The patient was reportedly combative and the technologist was unable to obtain optimal radi ographs. The lateral aspect of the right iliac crest is excluded. Normal alignment at the pubic symphysis and sacroiliac joints. No pelvic fracture or bone destruction . Hip joint spaces are symmetric and relatively preserved. No obvious fracture or dislocation is evid ent at either hip. IMPRESSION: Limited examination; no apparent fracture, dislocation or bone destruction is noted Reviewed, dictated and finalized at location A. IMPRESSION: Limited examination; no apparent fracture, dislocation or bone dest ruction is noted
--- NOTE | ~2021-12-16 | XR_ITS ---
XR chest 1V portable DATE: 12/16/2021 07:39 INDICATION: Positive d-dimer. Volume overload. Leg cramps. TECHNIQUE: Portable AP chest on 12/16/2021 at 0739 hours COMPARISON: 05/26/2021 PA and lateral views FINDINGS: Status post sternotomy. Surgical clips overlie the heart mediastinum. No pulmonary infiltra te or consolidation, pleural effusion or pulmonary vascular congestion or pneumothorax. IMPRESSION: No active cardiopulmonary disease Reviewed, dictated and finalized at location A.
--- NOTE | ~2021-12-16 | CT_ITS ---
EXAMINATION: CTA chest PE protocol DATE: 12/16/2021 08:36 INDICATION: Positive d-dimer TECHNIQUE: Computed tomography angiography (CTA) of the chest was performed with 100 mL Omnipaque-350 intravenous contrast timed to evaluate the pulmonary arteries. Coronal maximum intensity projection 3D-reconstructions were created by the technologist. Automated exposure control and iterative reconst ruction technique were employed. Exam dose: 1060.66 mGy-cm total exam DLP. COMPARISON: 12/16/2021 portable AP chest FINDINGS: There is diagnostic contrast enhancement of the pulmonary arteries and no evidence of pulmo nary embolism. There is aortic and coronary artery calcification. Status post sternotomy. Heart size is within rosie l limits. No hilar or mediastinal mass lesion or lymphadenopathy. There are occasional scattered focal small infiltrates, more prominent in the left lower lobe, which may represent focal areas of infection. A calcified pulmonary granulomas dose per second in each lowe r lobe. Normal morphology of the adrenal glands. Numerous small stones are noted in the dependent aspect of the gallbladder. No gallbladder wall thick ening or pericholecystic fluid or fat stranding. Diffuse idiopathic skeletal hyperostosis of the thoracic and lumbar spine. No suspicious osteolytic o r osteoblastic lesions are noted. IMPRESSION: Occasional focal bilateral infiltrates, most prominent in the left lower lobe Old pulmonary granulomatous disease No evidence of pulmonary embolism Reviewed, dictated and finalized at [facility]. Reviewed, dictated and finalized at location [facility].
--- NOTE | 2021-12-16 07:16 | ED.WEAKNESS ---
HPI - Weakness General Chief complaint: Extremity Injury, Lower Stated complaint: ambulance Time Seen by Provider: 12/16/21 07:17 Source: patient Mode of arrival: EMS History of Present Illness HPI Narrative: 76-year-old male with a history of hypertension, dyslipidemia, coronary artery disease status post CABG in 2003, 2004, end-stage renal disease on hemodialysis, periodic leg movement, EVA, COPD, chronic low back pain status post back surgery, arthritis with chronic right knee pain, polyneuropathy presents to the ER with -- he has slid out of bed but did not sustain any injuries -- chronic hip and right knee pain -- cramps in his thighs -- generalized weakness the patient denied any fever. No chest pain or shortness of breath. The patient has been getting his dialysis Saturday/ / Saturday on a regular basis. MD Complaint: generalized weakness Onset (ago): week(s) Duration: constant Location: generalized Relieving factors: none Exacerbating factors: none Associated symptoms: myalgias Related Data Home Medications Medication Instructions Recorded Confirmed atorvastatin 40 mg tablet (Lipitor) 40 mg PO DAILY 03/26/19 12/16/21 insulin glargine 100 unit/mL 60 unit subcut QAM 03/26/19 12/16/21 subcutaneous solution (Lantus U-100 Insulin) insulin lispro 100 unit/mL 15 unit subcut TIDWMEAL 03/26/19 12/16/21 subcutaneous solution (Humalog U-100 Insulin) aspirin 81 mg tablet,delayed 81 mg PO DAILY 04/20/20 12/16/21 release coenzyme Q10 100 mg capsule (Co 100 mg PO DAILY 04/20/20 12/16/21 Q-10) folic acid 400 mcg tablet 0.4 mg PO DAILY 04/20/20 12/16/21 hmiwksamgkxj-ntxngvqm-agdjjj 1 tablet PO DAILY 04/20/20 12/16/21 tablet (Multivitamin 50 Plus tablet) ropinirole 0.5 mg tablet 0.5 mg PO HS 04/20/20 12/16/21 sevelamer carbonate 800 mg tablet 1,600 mg PO BID 04/20/20 12/16/21 (Renvela) carvedilol 3.125 mg tablet 3.125 mg PO BID 06/10/20 12/16/21 vitamin B complex-vitamin C-folic 1 tablet PO DAILY 12/16/21 12/16/21 acid 0.8 mg tablet (Haydee-Kelly) Allergies Allergy/AdvReac Type Severity Reaction Status Date / Time No Known Allergies Allergy Verified 12/16/21 07:28 Review of Systems Review of Systems: All systems reviewed & are unremarkable except as noted in HPI and below Constitutional: Constitutional: Reports as per HPI and Reports no additional constitutional complaints Eyes: Eyes: Reports as per HPI and Reports no additional eye complaints ENT: Reports system reviewed and no additional complaints, except as documented and Reports as per HPI Cardiovascular: Cardiovascular: Reports as per HPI and Reports no additional cardiovascular complaints Respiratory: Respiratory: Reports as per HPI and Reports no additional respiratory complaints Gastrointestinal: Gastrointestinal: Reports as per HPI and Reports no additional gastrointestinal complaints Genitourinary: Genitourinary: Reports no additional male genitourinary complaints Comments: anuric Musculoskeletal: Musculoskeletal: Reports no additional musculoskeletal complaints, Reports as per HPI, Reports myalgias, Reports arthralgias and Reports muscle cramps Integumentary/Breasts: Skin/Breast: Reports system reviewed and no additional complaints, except as docu and Reports as per HPI Comments: skin tear over his right elbow. Bruises of his upper extremity. AV fistula left forearm. Neurologic: Reports system reviewed and no additional complaints, except as documented and Reports as per HPI Psychiatric: Psychiatric: Reports no additional psychiatric complaints and Reports as per HPI Endocrine: Endocrine: Reports no additional endocrine complaints and Reports as per HPI Hematologic/Lymphatic: Hematologic/Lymphatic: Reports no additional hematologic/lymphatic complaints and Reports as per HPI Allergic/Immunologic: Allergic/Immunologic: Reports no additional allergic/immunologic complaints and Reports as per HPI [facility]
--- NOTE | 2021-12-16 07:19 | ECG_ITS ---
Measurements Intervals [place] Rate: 92 P: 25 MN: 204 QRS: 65 QRSD: 136 T: 42 QT: 384 QTc: 477 Interpretive Statements SINUS RHYTHM RIGHT BUNDLE BRANCH BLOCK [120+ ms QRS DURATION, UPRIGHT V1, 40+ ms S IN I/aVL/V4/V5/V6] COMPARED TO ECG 06/10/2020 14:27:23 RIGHT BUNDLE-BRANCH BLOCK NOW PRESENT Electronically Signed On 12-17-2021 8:28:52 CDT by Fernando Brown M.D.
[2021-12-16 07:20] VITALS: BP 134/51; PULSE 92; RESP 20; TEMP 36.3; O2SAT 98
[2021-12-16 07:34] LABS: Basophils Absolute Auto 0.03 K/mm3 (0.00-0.10); Basophils Percent Auto 0.4 % (0.0-1.0); Eosinophils Absolute Auto 0.25 K/mm3 (0.02-0.50); Eosinophils Percent Auto 3.3 % (1.0-6.0); Hematocrit 31.8 % (37.0-46.0); Hemoglobin 10.4 g/dL (12.4-15.3); Immature Granulocyte Absolute 0.04 K/mm3 (0.00-0.00); Immature Granulocyte Percent A 0.5 % (0.0-0.0); Lymphocytes Absolute Auto 1.96 K/mm3 (1.10-4.50); Lymphocytes Percent Auto 25.7 % (18.0-42.0); Mean Corpuscular HGB Conc 32.7 g/dL (32.0-36.0); Mean Corpuscular Hemoglobin 34.1 pg (27.0-31.0); Mean Corpuscular Volume 104.3 fL (78.0-102.0); Mean Platelet Volume 9.1 fl (8.7-11.0); Monocytes Absolute Auto 0.97 K/mm3 (0.10-0.90); Monocytes Percent Auto 12.7 % (2.0-11.0); Neutrophils Absolute Auto 4.4 K/mm3 (1.7-7.2); Neutrophils Percent Auto 57.4 % (50.0-70.0); Platelet Count Result 221 K/mm3 (150-420); Red Blood Count 3.05 M/mm3 (4.70-6.10); Red Cell Distribution Width 14.9 % (11.6-14.4); White Blood Count 7.6 K/mm3 (4.8-10.8)
[2021-12-16 07:47] LABS: INR 0.9; Partial Thromboplastin Time 24.3 SEC (23.90-30.70); Prothrombin Time 10.4 Seconds (9.50-12.10)
[2021-12-16 07:55] LABS: Lactic Acid Reflex 2.4 mmol/L (0.4-2.0)
[2021-12-16 07:57] LABS: Alanine Aminotransferase 14 U/L (16-63); Albumin Level 3.3 g/dL (3.4-5.0); Alkaline Phosphatase 127 U/L (46-116); Anion Gap 13 mmol/L (8-16); Aspartate Amino Transferase 10 U/L (15-37); Bilirubin,Total 0.4 mg/dL (0.00-1.00); Blood Urea Nitrogen 49 mg/dL (7-18); Calcium 8.6 mg/dL (8.5-10.1); Carbon Dioxide 25 mmol/L (21-32); Chloride 98 mmol/L (98-108); Estimated CRCL calculation 10 ml/min; Estimated Glomerular Filt Rate 7; Glucose 114 mg/dL (70-99); NT Pro B Type Natriuretic Pept 2869 pg/mL (0-450); Osmolality Calculated 296 mOsm/kg (285-295); Potassium 5.1 mmol/L (3.5-5.1); Sodium 136 mmol/L (136-145); Total Protein 7.5 g/dL (6.4-8.2)
[2021-12-16 08:01] LABS: D Dimer 1.38 mg/L (0.19-0.50)
[2021-12-16 09:45] LABS: Glucose Point of Care 84 mg/dl (65-105)
[2021-12-16 10:07] LABS: Creatine Kinase 81 U/L (39-308)
[2021-12-16 10:30] VITALS: BP 126/45; PULSE 88; RESP 20; TEMP 36.7; O2SAT 98
[2021-12-16 10:31] LABS: Reflex Lactic Acid Yes or No Add Lactic
== END 2021-12-16 10:35 | disposition home or self-care (01) ==
PROVIDERS: Emergency Provider Internal Medicine Critical Care Medicine; PCP Internal Medicine
DX: R53.1 Weakness (principal); R25.2 Cramp and spasm; D64.9 Anemia, unspecified; N18.6 End stage renal disease; Z99.2 Dependence on renal dialysis; I12.0 Hypertensive chronic kidney disease with stage 5 chronic kidney disease or end stage renal disease; E78.5 Hyperlipidemia, unspecified; J44.9 Chronic obstructive pulmonary disease, unspecified; E11.9 Type 2 diabetes mellitus without complications; Z87.891 Personal history of nicotine dependence
CPT/HCPCS: 36415; 71045; 71275; 72170; 80053; 82550; 82948; 83605; 83880; 84484; 85025; 85380; 85610; 85730; 93005; 99284; Q9967

== ENCOUNTER 2021-12-19 09:16 | Emergency (ER) | payer MEDICARE, SELFPAY ==
--- NOTE | ~2021-12-19 | CT_ITS ---
EXAMINATION: CTA abd aorta runoff DATE: 12/19/2021 10:58 INDICATION: Bilateral thigh pain. TECHNIQUE: Computed tomographic angiography (CTA) of the abdominal, pelvis, and both lower extremitie s was performed with 150 mL Omnipaque-350 intravenous contrast. Automated exposure control and iterat mekhi reconstruction technique were employed. The dose-length product was 1758.90 mGy-cm. Maximum inten sity projection 3D-reconstructions of the arteries were created by the technologist on a separate wor kstation. COMPARISON: CT abdomen and pelvis 11/10/2013 FINDINGS: ABDOMINAL AORTA AND ITS BRANCHES: Abdominal aorta is normal in caliber. There is no significant stenosis of celiac axis, superior mesen teric artery, the renal arteries, or inferior mesenteric artery. PELVIC VASCULATURE: There is no significant stenosis of the common carotid arteries, external iliac arteries, or internal iliac arteries. RIGHT LOWER EXTREMITY VASCULATURE: There is no significant stenosis of right common femoral artery, profunda femoral artery, superficial femoral artery, popliteal artery, tibioperoneal trunk, anterior tibial artery, posterior tibial irma ry, or peroneal artery. LEFT LOWER EXTREMITY VASCULATURE: There is no significant stenosis of left common femoral artery, profunda femoral artery, superficial femoral artery, popliteal artery, tibioperoneal trunk, anterior tibial artery, posterior tibial arter y, or peroneal artery. ADDITIONAL FINDINGS: The visualized portions of the lung bases demonstrate mild atelectasis. There are tree-in-bud and lloyd undglass opacities in left lower lobe, consistent with mild pneumonia. No pleural effusion. The heart size is normal. There are coronary artery calcifications. There are calcifications of aortic valve. There are changes of coronary artery bypass grafting. No pericardial effusion. The liver and spleen a re normal. There are gallstones in the gallbladder, which is normal in size. The pancreas and adrenal glands are normal. There is cortical thinning of the kidneys. Stool distends the rectum. The appendi x is normal. There are no pathologically enlarged lymph nodes. There is subcutaneous edema in the low er limbs, left worse than right. There is fatty muscle atrophy in the lower limbs, left worse than ri ght. IMPRESSION: 1. No significant arterial occlusive disease. Bilateral three-vessel runoff. 2. Mild left lower lobe pneumonia. Reviewed, dictated and finalized at location [facility].
[2021-12-19 09:16] VITALS: BP 152/59; PULSE 83; RESP 14; TEMP 35.9; O2SAT 100
--- NOTE | 2021-12-19 09:34 | ED.FALL ---
HPI - Fall General Chief Complaint: Fall Stated Complaint: FALL Time Seen by Provider: 12/19/21 09:25 Source: patient, EMS and RN notes reviewed Mode of arrival: EMS Limitations: no limitations History of Present Illness HPI Narrative: Patient was here 2 days ago for same complaint. Today he had severe cramping in his bilateral thighs while he was coming out of the house. When the pain hit him his right knee gave out which is also not new. He said then he fell. Initially the call for EMS was for lift assist only but then patient stated that the severe cramping was present in his thighs and he wanted to come to the emergency room. When he was here 2 days ago with the cramping in the weakness he had a CT PE study, EKG, CMP, CBC. Only thing found was his chronic kidney failure. Patient was supposed to go to dialysis today. MD complaint: fall Onset (ago): minute(s) (1) Fall witnessed: yes, by family Place fall occurred: home Loss of consciousness: none Prolonged down time: yes Symptoms prior to fall: other (thigh pain) Context: history of frequent falls Location of injury: other (no new injury) Severity: moderate Quality: spasming Associated symptoms (after fall): denies Related Data Home Medications Medication Instructions Recorded Confirmed atorvastatin 40 mg tablet (Lipitor) 40 mg PO DAILY 03/26/19 12/19/21 insulin glargine 100 unit/mL 60 unit subcut QAM 03/26/19 12/19/21 subcutaneous solution (Lantus U-100 Insulin) insulin lispro 100 unit/mL 15 unit subcut TIDWMEAL 03/26/19 12/19/21 subcutaneous solution (Humalog U-100 Insulin) aspirin 81 mg tablet,delayed 81 mg PO DAILY 04/20/20 12/19/21 release coenzyme Q10 100 mg capsule (Co 100 mg PO DAILY 04/20/20 12/19/21 Q-10) folic acid 400 mcg tablet 0.4 mg PO DAILY 04/20/20 12/19/21 feukuishrtgg-gmulpxhd-ewhnyu 1 tablet PO DAILY 04/20/20 12/19/21 tablet (Multivitamin 50 Plus tablet) ropinirole 0.5 mg tablet 0.5 mg PO HS 04/20/20 12/19/21 sevelamer carbonate 800 mg tablet 1,600 mg PO BID 04/20/20 12/19/21 (Renvela) carvedilol 3.125 mg tablet 3.125 mg PO BID 06/10/20 12/19/21 vitamin B complex-vitamin C-folic 1 tablet PO DAILY 12/16/21 12/19/21 acid 0.8 mg tablet (Haydee-Kelly) Allergies Allergy/AdvReac Type Severity Reaction Status Date / Time No Known Allergies Allergy Verified 12/19/21 09:25 Review of Systems Review of Systems: All systems reviewed & are unremarkable except as noted in HPI and below PMFSH Past Medical History Medical History Acute kidney injury superimposed on CKD CAD (coronary artery disease) of bypass graft CKD stage 3 secondary to diabetes Complex sleep apnea syndrome (~2008) COPD (chronic obstructive pulmonary disease) Diabetes Dialysis patient T, TH, Sat HTN (hypertension) Hyperlipidemia Spinal cord compression unable to feel mid-calf and down bilaterally Surgical History Surgical History History of cataract surgery S/P CABG x 2 S/P CABG x 4 Status post tonsillectomy Family History Family History Father Acute myocardial infarction Mother Acute myocardial infarction Social History Social History Smoking status: Former smoker Second hand tobacco smoke exposure: No Additional smoking assessment comments: SMOKED 4 YEARS WHEN IN [employer] Alcohol intake: former Alcohol use details: DRANK SOCIALLY IN HIS 20'S Substance use: never Substance use type: does not use Gender identity (if verbalized by the patient): Male Spiritual care concerns: No Agree to blood products: Yes Exam Const: General: no acute distress and alert Nutritional Appearance: well nourished and obese morbidly obese Orientation/consciousness: patient oriented x3 Limitations: no limitations HENMT: H
--- NOTE | 2021-12-19 09:50 | PC.NURSE ---
AT BEDSIDE. PT REPORTS 'NUMBNESS' TO LEGS AT THIS TIME, DENIES PAIN. PT REPORTS THIS IS NOT NEW. PT AND ARE AWARE OF PLAN OF CARE. CALL LIGHT AT BEDSIDE. PT IS AWAITING CT AT THIS TIME. WILL CONTINUE TO MONITOR.
--- NOTE | 2021-12-19 10:33 | PC.NURSE ---
NIR REMOVED, PT PLACED IN GOWN. TO CT AT THIS TIME.
--- NOTE | 2021-12-19 11:02 | PC.NURSE ---
PT RETURNS FROM CT, AT BEDSIDE. DENIES NEEDS OR COMPLAINTS. WILL CONTINUE TO MONITOR.
--- NOTE | 2021-12-19 11:48 | PC.NURSE ---
[facility] CALLS AND STATES TO HAVE PT GO DIRECTLY TO DIALYSIS [place]. IS AWARE. PT IS ASSISTED WITH DRESSING AT THIS TIME.
[2021-12-19 11:49] VITALS: BP 132/67; PULSE 68; RESP 16; TEMP 36.7; O2SAT 98
--- NOTE | 2021-12-19 11:59 | PC.NURSE ---
PT ASSISTED TO WC AND POV PER RN AND TECH. PT IS LITTLE TO NO ASSISTANCE. PT HANGING ONTO STAFF, REFUSING TO LIFT LEGS.
== END 2021-12-19 11:55 | disposition home or self-care (01) ==
PROVIDERS: Emergency Provider Emergency Medicine; PCP Internal Medicine
DX: R25.2 Cramp and spasm (principal); E11.22 Type 2 diabetes mellitus with diabetic chronic kidney disease; I12.9 Hypertensive chronic kidney disease with stage 1 through stage 4 chronic kidney disease, or unspecified chronic kidney disease; N18.30 Chronic kidney disease, stage 3 unspecified; I25.10 Atherosclerotic heart disease of native coronary artery without angina pectoris; J44.9 Chronic obstructive pulmonary disease, unspecified; E78.5 Hyperlipidemia, unspecified; Z87.891 Personal history of nicotine dependence
CPT/HCPCS: 75635; 99284; Q9967

== ENCOUNTER 2021-12-22 09:49 | Outpatient (CLI) | payer MEDICARE, SELFPAY ==
--- NOTE | ~2021-12-22 | US_ITS ---
EXAMINATION: US venous doppler [facility] DATE: 12/22/2021 11:04 INDICATION: Lower limb edema and pain. TECHNIQUE: Grayscale ultrasound images without and with compression and Doppler ultrasound images of the bilateral lower extremity veins were obtained. COMPARISON: None. FINDINGS: The visualized portions of right common femoral vein, profunda (deep) femoral vein, femoral vein, pop liteal vein, peroneal veins, posterior tibial veins, and greater saphenous vein outflow are patent. The visualized portions of left common femoral vein, profunda femoral vein, femoral vein, popliteal v ein, peroneal veins, posterior tibial veins, and greater saphenous vein outflow are patent. IMPRESSION: 1. No deep venous thrombosis. Reviewed, dictated and finalized at location [facility].
== END 2021-12-22 09:50 | disposition home or self-care (01) ==
LOC: CHSIMG 09:52
PROVIDERS: PCP Internal Medicine; Visit Provider Internal Medicine
DX: M79.89 Other specified soft tissue disorders (principal)
CPT/HCPCS: 93970

== ENCOUNTER 2022-02-24 15:33 | Emergency (ER) | payer MEDICARE, SELFPAY ==
--- NOTE | ~2022-02-24 | XR_ITS ---
EXAM: XR pelvis 1-2V DATE: 02/24/2022 16:49 HISTORY: MULTIPLE FALLS. bilateral hip pain . COMPARISON: 12/16/2021. FINDINGS: Decreased mineralization. No fracture or dislocation. No lytic or blastic lesion. Degenera tive change in the lumbar spine. Bilateral hip osteoarthritis, worse on the right. Scattered pelvic e nthesopathy. No erosion or periosteal change. Surgical clips over the proximal leg soft tissues. Pelv ic phleboliths. IMPRESSION: No acute osseous finding in the pelvis. Reviewed, dictated and finalized at location [facility].
--- NOTE | ~2022-02-24 | XR_ITS ---
EXAMINATION: XR chest 1V Exam Date/Time: 02/24/2022 16:15 CDT HISTORY: cough Comparison: 12/16/2021. RESULT: Lines, tubes, and devices: Intact sternotomy wires. Mediastinal surgical clips. Lungs and pleura: Clear. Cardiomediastinal silhouette: Stable. Other: No acute osseous or upper abdominal finding. IMPRESSION: No acute cardiopulmonary process. Reviewed, dictated and finalized at location [facility].
--- NOTE | ~2022-02-24 | XR_ITS ---
EXAM: XR knee RT 3V DATE: 02/24/2022 16:48 HISTORY: FALL. RIGHT KNEE PAIN. . COMPARISON: 09/12/2018. FINDINGS: Decreased mineralization. Surgical clips in the medial soft tissues No fracture or disloca tion. No lytic or blastic lesion. Moderate right knee osteoarthritis. Quadriceps enthesopathy. No ero gina or periosteal change. Vascular calcifications. Small volume right knee joint effusion. IMPRESSION: No acute osseous finding in the right knee. Reviewed, dictated and finalized at location [facility].
[2022-02-24 15:42] VITALS: BP 156/58; PULSE 84; TEMP 36.4; O2SAT 99
[2022-02-24 15:43] VITALS: BP 156/58; PULSE 98; RESP 16; TEMP 36.4; O2SAT 97
--- NOTE | 2022-02-24 15:53 | ED.FALL ---
HPI - Fall General Chief Complaint: Back Pain/Injury Stated Complaint: hip/knee pain;fell down at home Source: patient and family Mode of arrival: EMS History of Present Illness HPI Narrative: 76-year-old male a history of obesity,hypertension, COPD, EVA on CPAP machine, end-stage renal disease on hemodialysis, diabetes mellitus, coronary artery disease status post CABG/CHF, arthritis, chronic right knee pain, chronic low back pain status post back surgery x2 presents to the ER with -- low back pain -- weakness of his hips and knees which gave out and caused him to fall on his buttocks -- he sustained injury to his right knee which has a traumatic ulcer his right knee -- chronic leg swelling has gotten worse over the past few days -- cough MD complaint: fall Onset (ago): day(s) ( past 2 days) Fall from: standing Fall witnessed: yes, by family Place fall occurred: home Loss of consciousness: none Prolonged down time: no Symptoms prior to fall: none Context: history of frequent falls and other ( his hips and knees gave out) Associated symptoms (after fall): numbness, weakness and unable to walk Related Data Home Medications Medication Instructions Recorded Confirmed atorvastatin 40 mg tablet (Lipitor) 40 mg PO DAILY 03/26/19 02/24/22 insulin glargine 100 unit/mL 60 unit subcut QAM 03/26/19 02/24/22 subcutaneous solution (Lantus U-100 Insulin) insulin lispro 100 unit/mL 15 unit subcut TIDWMEAL 03/26/19 02/24/22 subcutaneous solution (Humalog U-100 Insulin) aspirin 81 mg tablet,delayed 81 mg PO DAILY 04/20/20 02/24/22 release coenzyme Q10 100 mg capsule (Co 100 mg PO DAILY 04/20/20 02/24/22 Q-10) folic acid 400 mcg tablet 0.4 mg PO DAILY 04/20/20 02/24/22 difzvglykuoz-lrbxbmie-kvfoas 1 tablet PO DAILY 04/20/20 02/24/22 tablet (Multivitamin 50 Plus tablet) ropinirole 0.5 mg tablet 0.5 mg PO HS 04/20/20 02/24/22 sevelamer carbonate 800 mg tablet 1,600 mg PO BID 04/20/20 02/24/22 (Renvela) carvedilol 3.125 mg tablet 3.125 mg PO BID 06/10/20 02/24/22 vitamin B complex-vitamin C-folic 1 tablet PO DAILY 12/16/21 02/24/22 acid 0.8 mg tablet (Haydee-Kelly) Allergies Allergy/AdvReac Type Severity Reaction Status Date / Time No Known Allergies Allergy Verified 02/24/22 15:47 Review of Systems Review of Systems: All systems reviewed & are unremarkable except as noted in HPI and below Constitutional: Constitutional: Reports as per HPI and Reports no additional constitutional complaints Eyes: Eyes: Reports as per HPI and Reports no additional eye complaints ENT: Reports system reviewed and no additional complaints, except as documented and Reports as per HPI Cardiovascular: Cardiovascular: Reports as per HPI and Reports no additional cardiovascular complaints Respiratory: Respiratory: Reports as per HPI, Reports no additional respiratory complaints and Reports cough Gastrointestinal: Gastrointestinal: Reports as per HPI and Reports no additional gastrointestinal complaints Genitourinary: Comments: makes minimal urine. he is on dialysis Saturday and Saturday Musculoskeletal: Musculoskeletal: Reports no additional musculoskeletal complaints, Reports back pain and Reports arthralgias Integumentary/Breasts: Skin/Breast: Reports system reviewed and no additional complaints, except as docu Comments: traumatic ulcer on the right knee Neurologic: Reports system reviewed and no additional complaints, except as documented and Reports as per HPI Psychiatric: Psychiatric: Reports no additional psychiatric complaints and Reports as per HPI Endocrine: Endocrine: Reports no additional endocrine complaints and Reports as per HPI Hematologic/Lymphatic: Hematologic/Lymphatic: Reports no additional hematologic/lymphatic complaints and Reports as per HPI Allergic/Immunologic: Allergic/Immunologic: Reports no additional allergic/immunologic complaints and Reports as per HPI PMFSH Past Medical Hist
[2022-02-24 17:48] VITALS: BP 116/54; PULSE 96; RESP 16; TEMP 36.4; O2SAT 97
== END 2022-02-24 17:59 | disposition home or self-care (01) ==
PROVIDERS: Emergency Provider Internal Medicine Critical Care Medicine; PCP Internal Medicine
DX: M54.50 Low back pain, unspecified (principal); M25.561 Pain in right knee; I25.10 Atherosclerotic heart disease of native coronary artery without angina pectoris; I12.9 Hypertensive chronic kidney disease with stage 1 through stage 4 chronic kidney disease, or unspecified chronic kidney disease; N18.30 Chronic kidney disease, stage 3 unspecified; E11.9 Type 2 diabetes mellitus without complications; J44.9 Chronic obstructive pulmonary disease, unspecified; Z87.891 Personal history of nicotine dependence
CPT/HCPCS: 71045; 72170; 73562; 99284

== ENCOUNTER 2022-03-08 11:27 | Emergency (ER) | payer MEDICARE, SELFPAY ==
[2022-03-08] VITALS (7 sets, daily range): BP systolic 127–144; BP diastolic 56–85; PULSE 67–95; RESP 16–20; TEMP 36–36.8; O2SAT 98–100
--- NOTE | ~2022-03-08 | XR_ITS ---
XR chest 1V portable 03/08/2022 12:33 Indication: Shortness of breath Procedure: AP portable chest Comparison: Comparison to multiple prior studies sequentially, with oldest reviewed study dated 06/10. Findings: Status post median sternotomy for CABG. Heart size normal. No focal air space disease, pulm onary edema, pleural effusion or suspected pneumothorax. Impression: 1: No acute cardiopulmonary disease. Reviewed, dictated and finalized at location [facility]. Impression: 1: No acute cardiopulmonary disease.
--- NOTE | 2022-03-08 11:49 | ECG_ITS ---
Measurements Intervals [place] Rate: 90 P: 29 DE: 179 QRS: 58 QRSD: 134 T: 18 QT: 386 QTc: 472 Interpretive Statements SINUS RHYTHM INDETERMINATE AXIS RIGHT BUNDLE BRANCH BLOCK ABNORMAL ECG COMPARED TO ECG 12/16/2021 07:36:47 NO SIGNIFICANT CHANGES Electronically Signed On 03-09-2022 16:31:10 CDT by Jorge Stevenson M.D.
[2022-03-08 12:27] LABS: Hemoglobin 11.1 g/dL (12.4-15.3); Mean Corpuscular HGB Conc 31.7 g/dL (32.0-36.0); Mean Corpuscular Hemoglobin 32.8 pg (27.0-31.0); Mean Corpuscular Volume 103.6 fL (78.0-102.0); Mean Platelet Volume 9.1 fl (8.7-11.0); Platelet Count Result 255 K/mm3 (150-420); Red Blood Count 3.38 M/mm3 (4.70-6.10); Red Cell Distribution Width 15.1 % (11.6-14.4); White Blood Count 7.1 K/mm3 (4.8-10.8)
[2022-03-08 12:51] LABS: Band Neutrophils Percent 0 % (0-6); Lymphocytes Absolute Manual 1.27 K/mm3 (1.1-4.5); Lymphocytes Percent Manual 18 % (18-44); Monocytes Absolute Manual 1.06 K/mm3 (0.1-0.90); Monocytes Percent Manual 15 % (3-9); Neutrophils Absolute Manual 3.83 K/mm3 (1.3-6.7); Neutrophils Percent Manual 54 % (46-73); Total Cells Counted 100
[2022-03-08 12:52] LABS: Basophils Absolute Manual 0.07 K/mm3 (0-0.1); Basophils Percent Manual 1 % (0-1); Eosinophils Absolute Manual 0.85 K/mm3 (0.02-0.5); Eosinophils Percent Manual 12 % (1-6); Platelet Estimate Adequate (Adequate); Schistocytes None Seen (NORMAL)
[2022-03-08 12:53] LABS: Lactic Acid Reflex 2.2 mmol/L (0.4-2.0)
[2022-03-08 12:55] LABS: Partial Thromboplastin Time 24.4 SEC (23.90-30.70); Prothrombin Time 10.5 Seconds (9.50-12.10)
[2022-03-08 12:56] LABS: Alanine Aminotransferase 17 U/L (16-63); Alkaline Phosphatase 154 U/L (46-116); Anion Gap 10 mmol/L (8-16); Aspartate Amino Transferase 17 U/L (15-37); Bilirubin,Total 0.4 mg/dL (0.00-1.00); Blood Urea Nitrogen 27 mg/dL (7-18); Calcium 8.7 mg/dL (8.5-10.1); Carbon Dioxide 25 mmol/L (21-32); Chloride 99 mmol/L (98-108); Estimated CRCL calculation 20 ml/min; Estimated Glomerular Filt Rate 16; Glucose 182 mg/dL (70-99); NT Pro B Type Natriuretic Pept 5066 pg/mL (0-450); Osmolality Calculated 288 mOsm/kg (285-295); Potassium 4.2 mmol/L (3.5-5.1); Sodium 134 mmol/L (136-145); Total Protein 7.8 g/dL (6.4-8.2); Troponin I 18.8 ng/L (0.00-60.4)
[2022-03-08 12:59] LABS: CRP 2.1 mg/dL (0.0-0.9)
--- NOTE | 2022-03-08 13:40 | ED.GENADULT ---
HPI - General Adult General Chief complaint: Unspecified Stated complaint: LEG IS SWOLLEN Time Seen by Provider: 03/08/22 11:30 Source: patient and family Mode of arrival: wheelchair Limitations: physical limitation and clinical condition History of Present Illness HPI narrative: this is a 76-year-old gentleman presents with his with increasing lower extremity edema patient according to him and his have chronic peripheral edema but this is increasing and causing some weeping and currently in the left lower leg has some redness warmth and tenderness in the anterior portion of his left lower leg with some cracking and weeping, currently the patient is comfortable with no chest pain no shortness of breath, he has had weakness. 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, does receive hemodialysis for chronic kidney disease and had a dialysis yesterday. Has a history of heart failure had an echocardiogram performed in 06/2021 which showed an ejection fraction of 55 to 60% with a grade 1 diastolic dysfunction, has a history of diabetes apparently controlled with insulin. Patient is stable afebrile white count is normal blood pressure is stable at 140 4/85 the is adamant about admission but there is no reason to admit the patient advised to continue antibiotics on outpatient basis and follow up with his primary care physician and advised to call his glass setter for appointment as soon as possible. Onset (ago): day(s) Location: lower extremity Severity: moderate Related Data Home Medications Medication Instructions Recorded Confirmed atorvastatin 40 mg tablet (Lipitor) 40 mg PO DAILY 03/26/19 03/08/22 insulin glargine 100 unit/mL 60 unit subcut QAM 03/26/19 03/08/22 subcutaneous solution (Lantus U-100 Insulin) insulin lispro 100 unit/mL 15 unit subcut TIDWMEAL 03/26/19 03/08/22 subcutaneous solution (Humalog U-100 Insulin) aspirin 81 mg tablet,delayed 81 mg PO DAILY 04/20/20 03/08/22 release coenzyme Q10 100 mg capsule (Co 100 mg PO DAILY 04/20/20 03/08/22 Q-10) folic acid 400 mcg tablet 0.4 mg PO DAILY 04/20/20 03/08/22 qqyfprysdiml-yhnusraw-uiqdzg 1 tablet PO DAILY 04/20/20 03/08/22 tablet (Multivitamin 50 Plus tablet) ropinirole 0.5 mg tablet 0.5 mg PO HS 04/20/20 03/08/22 sevelamer carbonate 800 mg tablet 1,600 mg PO BID 04/20/20 03/08/22 (Renvela) carvedilol 3.125 mg tablet 3.125 mg PO BID 06/10/20 03/08/22 vitamin B complex-vitamin C-folic 1 tablet PO DAILY 12/16/21 03/08/22 acid 0.8 mg tablet (Haydee-Kelly) Allergies Allergy/AdvReac Type Severity Reaction Status Date / Time No Known Allergies Allergy Verified 03/08/22 11:45 Review of Systems Review of Systems: All systems reviewed & are unremarkable except as noted in HPI and below PMFSH Past Medical History Medical History Acute kidney injury superimposed on CKD CAD (coronary artery disease) of bypass graft CKD stage 3 secondary to diabetes Complex sleep apnea syndrome (~2008) COPD (chronic obstructive pulmonary disease) Diabetes Dialysis patient T, TH, Sat HTN (hypertension) Hyperlipidemia Spinal cord compression unable to feel mid-calf and down bilaterally Surgical History Surgical History History of cataract surgery S/P CABG x 2 S/P CABG x 4 Status post tonsillectomy Family History Family History Father Acute myocardial infarction Mother Acute myocardial infarction Social History Social History Smoking status: Former smoker Second hand tobacco smoke exposure: No Additional smoking assessment comments: SMOKED 4 YEARS WHEN [place] Alcohol intake: former Alcohol use details: DRANK SOCIALLY IN HIS 20'S Substance use: never Substance use type: does not use Gender pankaj
[2022-03-08] MEDS: FUROSEMIDE INJ 40 MG/4 ML VIAL IV PUSH (13:56)
[2022-03-08 15:25] LABS: Reflex Lactic Acid Yes or No Add Lactic
[2022-03-08 16:20] LABS: Lactic Acid 2.1 mmol/L (0.4-2.0)
== END 2022-03-08 18:57 | disposition home or self-care (01) ==
PROVIDERS: Emergency Provider Emergency Medicine; PCP Internal Medicine
DX: R60.9 Edema, unspecified (principal); L03.116 Cellulitis of left lower limb; N18.6 End stage renal disease; Z99.2 Dependence on renal dialysis; I25.10 Atherosclerotic heart disease of native coronary artery without angina pectoris; J44.9 Chronic obstructive pulmonary disease, unspecified; E11.9 Type 2 diabetes mellitus without complications; E78.5 Hyperlipidemia, unspecified; Z87.891 Personal history of nicotine dependence; I12.0 Hypertensive chronic kidney disease with stage 5 chronic kidney disease or end stage renal disease
CPT/HCPCS: 36415; 71045; 80053; 83605; 83880; 84484; 85025; 85610; 85730; 86140; 93005; 96365; 96375; 99284; J0696; J1940

== ENCOUNTER 2022-09-26 15:52 | Emergency (ER) | payer MEDICARE, SELFPAY ==
[2022-09-26 16:02] VITALS: BP 137/64; PULSE 90; RESP 20; TEMP 36.6; O2SAT 96
--- NOTE | 2022-09-26 16:09 | ED.UPPEXIN ---
HPI - Extremity Injury (Upper) General Chief Complaint: Wound/Laceration Stated Complaint: R arm skin tear Time Seen by Provider: 09/26/22 16:09 Source: patient Mode of arrival: ambulatory Limitations: no limitations History of Present Illness HPI narrative: 76-year-old male a history of diabetes mellitus, COPD, cord compression, end-stage renal disease on hemodialysis, hypertension, CAD/CABG /stent/CHF presents to the ER with -- right forearm skin tear. The patient brushed his right forearm against a chair and sustained 2 skin tears. The 1st 1 measured 3 cm with the bleeder in the center. The 2nd measured 2 cm. No other injuries noted. Last tetanus shot was 10 years ago. MD complaint: injury to: right and forearm Onset (ago): day(s) ( Four days ago) Other Extremity Injury: Right: forearm Other injuries: none Handedness: right Place: home Severity: mild Relieving factors: none Exacerbating factors: none Context: direct blow Related Data Home Medications Medication Instructions Recorded Confirmed atorvastatin 40 mg tablet (Lipitor) 40 mg PO DAILY 03/26/19 03/08/22 insulin glargine 100 unit/mL 60 unit subcut QAM 03/26/19 03/08/22 subcutaneous solution (Lantus U-100 Insulin) insulin lispro 100 unit/mL 15 unit subcut TIDWMEAL 03/26/19 03/08/22 subcutaneous solution (Humalog U-100 Insulin) aspirin 81 mg tablet,delayed 81 mg PO DAILY 04/20/20 03/08/22 release coenzyme Q10 100 mg capsule (Co 100 mg PO DAILY 04/20/20 03/08/22 Q-10) folic acid 400 mcg tablet 0.4 mg PO DAILY 04/20/20 03/08/22 vhssefcsaskb-aylocycy-shopkk 1 tablet PO DAILY 04/20/20 03/08/22 tablet (Multivitamin 50 Plus tablet) ropinirole 0.5 mg tablet 0.5 mg PO HS 04/20/20 03/08/22 sevelamer carbonate 800 mg tablet 1,600 mg PO BID 04/20/20 03/08/22 (Renvela) carvedilol 3.125 mg tablet 3.125 mg PO BID 06/10/20 03/08/22 vitamin B complex-vitamin C-folic 1 tablet PO DAILY 12/16/21 03/08/22 acid 0.8 mg tablet (Haydee-Kelly) Allergies Allergy/AdvReac Type Severity Reaction Status Date / Time No Known Allergies Allergy Verified 03/08/22 11:45 Review of Systems Review of Systems: All systems reviewed & are unremarkable except as noted in HPI and below Constitutional: Constitutional: Reports as per HPI and Reports no additional constitutional complaints Eyes: Eyes: Reports as per HPI and Reports no additional eye complaints ENT: Reports system reviewed and no additional complaints, except as documented and Reports as per HPI Cardiovascular: Cardiovascular: Reports as per HPI and Reports no additional cardiovascular complaints Respiratory: Respiratory: Reports as per HPI and Reports no additional respiratory complaints Gastrointestinal: Gastrointestinal: Reports as per HPI and Reports no additional gastrointestinal complaints Genitourinary: Comments: on hemodialysis. Musculoskeletal: Musculoskeletal: Reports no additional musculoskeletal complaints and Reports as per HPI Integumentary/Breasts: Comments: Skin tear on the right forearm. Multiple bruises right forearm. Neurologic: Reports system reviewed and no additional complaints, except as documented and Reports as per HPI Psychiatric: Psychiatric: Reports no additional psychiatric complaints and Reports as per HPI Endocrine: Endocrine: Reports no additional endocrine complaints and Reports as per HPI Hematologic/Lymphatic: Hematologic/Lymphatic: Reports no additional hematologic/lymphatic complaints and Reports as per HPI Allergic/Immunologic: Allergic/Immunologic: Reports no additional allergic/immunologic complaints and Reports as per HPI [facility] Past Medical History Medical History Acute kidney injury superimposed on CKD CAD (coronary artery disease) of bypass graft CKD stage 3 secondary to diabetes Complex sleep apnea syndrome (~2008) COPD (chronic obstructive pulmonary disease) Diabetes D
[2022-09-26] MEDS: SILVER NITRATE (*SP) STICK 1 EACH TOPICAL (16:47)
[2022-09-26] MEDS: TETANUS,DIPHTHERIA,AC PERTUSSIS ADULT 0.5 ML (ADACEL) IM (16:47)
[2022-09-26] MEDS: NEOMYCIN/POLYMYXIN/BACITRACIN OINTMENT PACKET 1 PACKET TOPICAL (16:47)
[2022-09-26 16:57] VITALS: BP 138/74; PULSE 88; RESP 20; TEMP 37; O2SAT 98
[2022-09-26 17:15] VITALS: BP 136/72; PULSE 82; RESP 18; TEMP 37; O2SAT 98
== END 2022-09-26 17:15 | disposition home or self-care (01) ==
PROVIDERS: Emergency Provider Internal Medicine Critical Care Medicine; PCP Internal Medicine
DX: S51.811A Laceration without foreign body of right forearm, initial encounter (principal); J44.9 Chronic obstructive pulmonary disease, unspecified; E11.22 Type 2 diabetes mellitus with diabetic chronic kidney disease; I13.2 Hypertensive heart and chronic kidney disease with heart failure and with stage 5 chronic kidney disease, or end stage renal disease; I50.9 Heart failure, unspecified; N18.6 End stage renal disease; I25.810 Atherosclerosis of coronary artery bypass graft(s) without angina pectoris; E78.5 Hyperlipidemia, unspecified; Z87.891 Personal history of nicotine dependence; Z23 Encounter for immunization; W45.8XXA Other foreign body or object entering through skin, initial encounter
CPT/HCPCS: 12001; 90471; 90715; 99283

== ENCOUNTER 2023-03-13 06:58 | Emergency (ER) | payer MEDICARE, SELFPAY ==
--- NOTE | ~2023-03-13 | XR_ITS ---
EXAMINATION: XR chest 1V portable DATE: 03/13/2023 07:46 INDICATION: Shortness of breath. TECHNIQUE: A single frontal view of the chest was obtained. COMPARISON: Chest single view 03/08/2022 FINDINGS: There is no pneumonia, pleural effusion, or pneumothorax. The heart size is normal. Median sternotomy wires and mediastinal surgical clips are seen, likely from prior coronary artery bypass gr afting. IMPRESSION: 1. No acute cardiopulmonary disease. Reviewed, dictated and finalized at location E.
--- NOTE | 2023-03-13 07:02 | ED.SOB ---
HPI - SOB/Dyspnea General Chief Complaint: Shortness of Breath/Dyspnea Stated Complaint: SOB Time Seen by Provider: 03/13/23 06:59 Source: patient Mode of arrival: wheelchair Limitations: no limitations History of Present Illness HPI Narrative: 77-year-old male with a history of hypertension, CAD status post CABG, CHF, COPD, EVA, diabetes mellitus, cord compression, ESRD on HD presents to the ER with -- 3 day history of worsening shortness of breath. patient got dialyzed 2 days ago and had removal of 4 L. -- nonproductive cough -- sore throat no fever or chills. No chest pain. Chronic leg swelling. No recent worsening. patient has been unable to use his CPAP machine for the past 2 months MD elicited complaint: shortness of breath and cough Pertinent past history: COPD Onset (ago): day(s) ( started 3 days ago) Context: recent illness Timing: constant Severity: moderate Exacerbating factors: lying flat Relieving factors: nothing Known history of: COPD and congestive heart failure Associated symptoms: cough and chest congestion Treatment prior to arrival: none Related Data Home oxygen amount: none Home Medications Medication Instructions Recorded Confirmed atorvastatin 40 mg tablet (Lipitor) 40 mg PO DAILY 03/26/19 03/13/23 insulin glargine 100 unit/mL 60 unit subcut QAM 03/26/19 03/13/23 subcutaneous solution (Lantus U-100 Insulin) insulin lispro 100 unit/mL 15 unit subcut TIDWMEAL 03/26/19 03/13/23 subcutaneous solution (Humalog U-100 Insulin) aspirin 81 mg tablet,delayed 81 mg PO DAILY 04/20/20 03/13/23 release coenzyme Q10 100 mg capsule (Co 100 mg PO DAILY 04/20/20 03/13/23 Q-10) folic acid 400 mcg tablet 0.4 mg PO DAILY 04/20/20 03/13/23 bhceapfofyjj-krpfnzpa-hrgxpl 1 tablet PO DAILY 04/20/20 03/13/23 tablet (Multivitamin 50 Plus tablet) ropinirole 0.5 mg tablet 0.5 mg PO HS 04/20/20 03/13/23 sevelamer carbonate 800 mg tablet 1,600 mg PO BID 04/20/20 03/13/23 (Renvela) carvedilol 3.125 mg tablet 3.125 mg PO BID 06/10/20 03/13/23 vitamin B complex-vitamin C-folic 1 tablet PO DAILY 12/16/21 03/13/23 acid 0.8 mg tablet (Haydee-Kelly) Allergies Allergy/AdvReac Type Severity Reaction Status Date / Time No Known Allergies Allergy Verified 03/13/23 07:06 Review of Systems Review of Systems: All systems reviewed & are unremarkable except as noted in HPI and below Constitutional: Constitutional: Reports as per HPI and Reports no additional constitutional complaints Eyes: Eyes: Reports as per HPI and Reports no additional eye complaints ENT: Reports system reviewed and no additional complaints, except as documented and Reports as per HPI Cardiovascular: Cardiovascular: Reports as per HPI and Reports no additional cardiovascular complaints Respiratory: Respiratory: Reports as per HPI, Reports no additional respiratory complaints, Reports chest congestion, Reports cough and Reports dyspnea Gastrointestinal: Gastrointestinal: Reports as per HPI and Reports no additional gastrointestinal complaints Genitourinary: Genitourinary: Reports no additional male genitourinary complaints and Reports as per HPI Musculoskeletal: Musculoskeletal: Reports no additional musculoskeletal complaints and Reports as per HPI Integumentary/Breasts: Skin/Breast: Reports system reviewed and no additional complaints, except as docu and Reports as per HPI Neurologic: Reports system reviewed and no additional complaints, except as documented and Reports as per HPI Psychiatric: Psychiatric: Reports no additional psychiatric complaints and Reports as per HPI Endocrine: Endocrine: Reports no additional endocrine complaints and Reports as per HPI Hematologic/Lymphatic: Hematologic/Lymphatic: Reports no additional hematologic/lymphatic complaints and Reports as per HPI Allergic/Immunologic: Allergic/Immunologic: Reports no additional allergic/immunologic complaints and Reports as per HPI [facility]
[2023-03-13 07:09] VITALS: BP 131/62; PULSE 80; RESP 18; TEMP 36.3; O2SAT 100
[2023-03-13 07:10] VITALS: PULSE 80
--- NOTE | 2023-03-13 07:16 | ECG_ITS ---
Measurements Intervals [place] Rate: 71 P: 106 AR: 181 QRS: 13 QRSD: 134 T: 18 QT: 424 QTc: 462 Interpretive Statements SINUS RHYTHM WITH SINUS ARRHYTHMIA RIGHT BUNDLE BRANCH BLOCK INFERIOR INFARCT, AGE INDETERMINATE BASELINE ARTIFACT- I, II, III, AVR, AVL, AVF ABNORMAL ECG COMPARED TO ECG 03/08/2022 12:07:56 SINUS ARRHYTHMIA NOW PRESENT Electronically Signed On 03-13-2023 8:14:04 CDT by Enrike Sumner D.O.
[2023-03-13 07:33] VITALS: PULSE 79; RESP 12; O2SAT 98
[2023-03-13] MEDS: IPRATROPIUM 0.5 MG/ALBUTEROL SULFATE 2.5 MG AMPUL.NEB 3 ML INHALATION (07:34)
[2023-03-13 07:37] LABS: Basophils Absolute Auto 0.03 K/mm3 (0.00-0.10); Basophils Percent Auto 0.4 % (0.0-1.0); Eosinophils Percent Auto 4.4 % (1.0-6.0); Hematocrit 34.7 % (37.0-46.0); Hemoglobin 11.3 g/dL (12.4-15.3); Immature Granulocyte Absolute 0.04 K/mm3 (0.00-0.00); Immature Granulocyte Percent A 0.6 % (0.0-0.0); Lymphocytes Absolute Auto 1.66 K/mm3 (1.10-4.50); Lymphocytes Percent Auto 24.2 % (18.0-42.0); Mean Corpuscular HGB Conc 32.6 g/dL (32.0-36.0); Mean Corpuscular Hemoglobin 32.6 pg (27.0-31.0); Mean Platelet Volume 9.8 fl (8.7-11.0); Monocytes Absolute Auto 1.01 K/mm3 (0.10-0.90); Monocytes Percent Auto 14.7 % (2.0-11.0); Neutrophils Absolute Auto 3.8 K/mm3 (1.7-7.2); Neutrophils Percent Auto 55.7 % (50.0-70.0); Platelet Count Result 158 K/mm3 (150-420); Red Blood Count 3.47 M/mm3 (4.70-6.10); Red Cell Distribution Width 18.3 % (11.6-14.4); White Blood Count 6.9 K/mm3 (4.8-10.8)
[2023-03-13 07:39] VITALS: PULSE 79; RESP 12; O2SAT 100
[2023-03-13 07:44] LABS: Influenza A QL RT-PCR Negative (Negative); Influenza B QL RT-PCR Negative (Negative); SARS-CoV-2 RNA PCR Negative (Negative)
[2023-03-13 07:48] LABS: RSV RNA, RT-PCR Negative (Negative)
[2023-03-13 07:53] LABS: Partial Thromboplastin Time 26.7 SEC (23.90-30.70); Prothrombin Time 10.5 Seconds (9.50-12.10)
[2023-03-13 07:55] LABS: Lactic Acid Reflex 1.6 mmol/L (0.4-2.0)
[2023-03-13 07:59] LABS: Alanine Aminotransferase 17 U/L (16-63); Albumin Level 2.8 g/dL (3.4-5.0); Alkaline Phosphatase 134 U/L (46-116); Anion Gap 10 mmol/L (8-16); Aspartate Amino Transferase 20 U/L (15-37); Bilirubin,Total 0.4 mg/dL (0.00-1.00); Blood Urea Nitrogen 66 mg/dL (7-18); Calcium 8.5 mg/dL (8.5-10.1); Carbon Dioxide 26 mmol/L (21-32); Chloride 95 mmol/L (98-108); Estimated CRCL calculation 8 ml/min; Estimated Glomerular Filt Rate 6; Glucose 128 mg/dL (70-99); NT Pro B Type Natriuretic Pept 4191 pg/mL (0-450); Osmolality Calculated 293 mOsm/kg (285-295); Potassium 5.5 mmol/L (3.5-5.1); Sodium 131 mmol/L (136-145); Total Protein 7.1 g/dL (6.4-8.2)
[2023-03-13 08:01] LABS: Troponin I 8.6 ng/L (0.00-60.4)
[2023-03-13 08:58] VITALS: BP 103/47; PULSE 89; RESP 20; TEMP 36.3; O2SAT 97
== END 2023-03-13 09:05 | disposition home or self-care (01) ==
PROVIDERS: Emergency Provider Internal Medicine Critical Care Medicine; PCP Internal Medicine
DX: I13.0 Hypertensive heart and chronic kidney disease with heart failure and stage 1 through stage 4 chronic kidney disease, or unspecified chronic kidney disease (principal); I50.9 Heart failure, unspecified; J06.9 Acute upper respiratory infection, unspecified; E87.70 Fluid overload, unspecified; I25.810 Atherosclerosis of coronary artery bypass graft(s) without angina pectoris; N18.30 Chronic kidney disease, stage 3 unspecified; E11.22 Type 2 diabetes mellitus with diabetic chronic kidney disease; J44.9 Chronic obstructive pulmonary disease, unspecified; E78.5 Hyperlipidemia, unspecified; Z87.891 Personal history of nicotine dependence; Z20.822 Contact with and (suspected) exposure to COVID-19
CPT/HCPCS: 36415; 71045; 80053; 83605; 83880; 84484; 85025; 85610; 85730; 87637; 93005; 94640; 99284

== ENCOUNTER 2023-06-05 16:06 | Observation (INO) | payer MEDICARE, SELFPAY ==
[2023-06-05] VITALS (22 sets, daily range): BP systolic 85–124; BP diastolic 39–67; PULSE 77–102; RESP 13–23; TEMP 37; O2SAT 94–100; BMI 33.7
--- NOTE | ~2023-06-05 | CT_ITS ---
EXAMINATION: CT abdomen pelvis wo con DATE: 06/05/2023 17:46 INDICATION: Abdominal pain. TECHNIQUE: Computed tomography (CT) of the abdomen and pelvis was performed without intravenous contr ast. Automated exposure control and iterative reconstruction technique were employed. The dose-length product was 1480.64 mGy-cm. COMPARISON: CT abdomen and pelvis 12/19/2021 FINDINGS: The visualized portions of the lung bases demonstrate mild atelectasis. No pleural effusion . The heart size is normal. There are coronary artery calcifications. There are changes of coronary b ypass grafting. There are calcifications of the aortic valve. No pericardial effusion. There is bilat eral gynecomastia. The liver and spleen are normal. There are gallstones in the gallbladder, which is normal in size. The pancreas and right adrenal gland are normal. There is a chronic 15 mm mass in le ft adrenal gland measuring soft tissue attenuation, likely an adenoma. There is a 4 mm stone in right renal pelvis. There is a 3 mm stone in left renal pelvis. No hydronephrosis. There is cortical thinn ing of the kidneys. There are no dilated loops of bowel. The appendix is normal. There is calcified a therosclerosis of the aorta and many of the other arteries. There are no pathologically enlarged lymp h nodes. There is no free intraperitoneal fluid. There is severe lumbar spondylosis. There is a chron ic burst fracture of L2. IMPRESSION: 1. Bilateral nonobstructing kidney stones. Reviewed, dictated and finalized at location E. NEL DEVELOPMENT MANAGER
--- NOTE | ~2023-06-05 | CT_ITS ---
EXAMINATION: CT brain wo con DATE: 06/05/2023 17:47 INDICATION: Dizziness. Weakness. TECHNIQUE: Computed tomography (CT) of the head was performed without intravenous contrast. The mA wa s adjusted according to patient size. Iterative reconstruction technique was employed. The dose-lengt h product was 681.00 mGy-cm. COMPARISON: None FINDINGS: There is no intracranial hemorrhage, acute infarction, or abnormal intracranial mass lesion . The ventricles are normal in size. There is mild mucosal thickening in the ethmoid sinuses. There a re small bilateral mastoid effusions. IMPRESSION: 1. Normal brain. Reviewed, dictated and finalized at location E. GER FIELD SALES IMPRESSION: 1. Normal brain.
--- NOTE | ~2023-06-05 | XR_ITS ---
EXAMINATION: XR chest 1V portable DATE: 06/05/2023 17:47 INDICATION: Weakness. TECHNIQUE: A single frontal view of the chest was obtained. COMPARISON: Chest single view 03/13/2023 FINDINGS: There is no pneumonia, pleural effusion, or pneumothorax. The heart size is normal. Median sternotomy wires and mediastinal surgical clips are seen, likely from prior coronary artery bypass gr afting. IMPRESSION: 1. No acute cardiopulmonary disease. Reviewed, dictated and finalized at location E. EM MANAGER
--- NOTE | 2023-06-05 16:26 | ECG_ITS ---
Measurements Intervals [place] Rate: 78 P: -22 OK: 163 QRS: 64 QRSD: 138 T: 36 QT: 417 QTc: 475 Interpretive Statements SINUS RHYTHM POSSIBLE LEFT ATRIAL ENLARGEMENT RIGHT BUNDLE BRANCH BLOCK BASELINE ARTIFACT- I, II, III, AVR, AVL, AVF ABNORMAL ECG COMPARED TO ECG 03/13/2023 07:28:16 NO SIGNIFICANT CHANGES Electronically Signed On 06-06-2023 6:59:47 TANNING WHEEL OPERATOR by Enrike Sumner D.O.
--- NOTE | 2023-06-05 16:28 | ED.WEAKNESS ---
HPI - Weakness General Chief complaint: Weakness Stated complaint: weakness after dialysis Time Seen by Provider: 06/05/23 16:11 Source: patient and family Mode of arrival: wheelchair Limitations: no limitations History of Present Illness HPI Narrative: 77-year-old male with a history of hypertension, diabetes mellitus, CAD status post CABG, CHF, COPD, EVA, spinal cord compression, end-stage renal disease on hemodialysis presents to the ER from the dialysis center with -- dizziness and lightheadedness which is worse on standing up -- abdominal pain. No fever or chills. No nausea/ vomiting / diarrhea. Patient did not have a bowel movement today. abdominal pain is diffuse. It is continuous. No exacerbating or relieving factors. The patient was dialyzed yesterday and had removal of 4.5 L of fluids. Today he had dialysis again and had removal of 4.5 L. towards the end of the dialysis session today the patient developed lower abdominal pain. MD Complaint: generalized weakness Onset (ago): hour(s) ( Started 2 hours ago) Duration: constant Location: generalized Severity: severe Relieving factors: none Exacerbating factors: none Associated symptoms: denies other symptoms Related Data Home Medications Medication Instructions Recorded Confirmed atorvastatin 40 mg tablet (Lipitor) 40 mg PO DAILY 03/26/19 03/13/23 insulin glargine 100 unit/mL 60 unit subcut QAM 03/26/19 03/13/23 subcutaneous solution (Lantus U-100 Insulin) insulin lispro 100 unit/mL 15 unit subcut TIDWMEAL 03/26/19 03/13/23 subcutaneous solution (Humalog U-100 Insulin) aspirin 81 mg tablet,delayed 81 mg PO DAILY 04/20/20 03/13/23 release coenzyme Q10 100 mg capsule (Co 100 mg PO DAILY 04/20/20 03/13/23 Q-10) folic acid 400 mcg tablet 0.4 mg PO DAILY 04/20/20 03/13/23 ndoqfvqfuylg-qdwbfwhm-kcejem 1 tablet PO DAILY 04/20/20 03/13/23 tablet (Multivitamin 50 Plus tablet) ropinirole 0.5 mg tablet 0.5 mg PO HS 04/20/20 03/13/23 sevelamer carbonate 800 mg tablet 1,600 mg PO BID 04/20/20 03/13/23 (Renvela) carvedilol 3.125 mg tablet 3.125 mg PO BID 06/10/20 03/13/23 vitamin B complex-vitamin C-folic 1 tablet PO DAILY 12/16/21 03/13/23 acid 0.8 mg tablet (Haydee-Kelly) Allergies Allergy/AdvReac Type Severity Reaction Status Date / Time No Known Allergies Allergy Verified 03/13/23 07:06 Review of Systems Review of Systems: All systems reviewed & are unremarkable except as noted in HPI and below Constitutional: Constitutional: Reports as per HPI, Reports no additional constitutional complaints and Reports weakness Eyes: Eyes: Reports as per HPI and Reports no additional eye complaints ENT: Reports system reviewed and no additional complaints, except as documented and Reports as per HPI Cardiovascular: Cardiovascular: Reports as per HPI and Reports no additional cardiovascular complaints Respiratory: Respiratory: Reports as per HPI and Reports no additional respiratory complaints Gastrointestinal: Gastrointestinal: Reports as per HPI and Reports no additional gastrointestinal complaints Genitourinary: Genitourinary: Reports no additional male genitourinary complaints and Reports as per HPI Comments: Patient is in uric Musculoskeletal: Musculoskeletal: Reports no additional musculoskeletal complaints and Reports as per HPI Integumentary/Breasts: Skin/Breast: Reports system reviewed and no additional complaints, except as docu Comments: Multiple bruising of both upper extremities. Neurologic: Reports system reviewed and no additional complaints, except as documented, Reports as per HPI and Reports dizziness Comments: The patient feels lightheaded on standing up. Psychiatric: Psychiatric: Reports no additional psychiatric complaints and Reports as per HPI Endocrine: Endocrine: Reports no additional endocrine complaints and Reports as per HPI Hematologic/Lymphatic: Hematologic/Lymphatic: Reports no additio
--- NOTE | 2023-06-05 16:30 | PC.NURSE ---
pt states does not produce urine usually
[2023-06-05 16:50] LABS: Basophils Absolute Auto 0.06 K/mm3 (0.00-0.10); Basophils Percent Auto 0.7 % (0.0-1.0); Eosinophils Absolute Auto 0.25 K/mm3 (0.02-0.50); Eosinophils Percent Auto 2.8 % (1.0-6.0); Hematocrit 38.9 % (37.0-46.0); Immature Granulocyte Absolute 0.05 K/mm3 (0.00-0.00); Immature Granulocyte Percent A 0.6 % (0.0-0.0); Lymphocytes Absolute Auto 1.27 K/mm3 (1.10-4.50); Lymphocytes Percent Auto 14.1 % (18.0-42.0); Mean Corpuscular HGB Conc 30.8 g/dL (32.0-36.0); Mean Corpuscular Volume 103.7 fL (78.0-102.0); Mean Platelet Volume 9.3 fl (8.7-11.0); Monocytes Absolute Auto 0.96 K/mm3 (0.10-0.90); Monocytes Percent Auto 10.7 % (2.0-11.0); Neutrophils Absolute Auto 6.4 K/mm3 (1.7-7.2); Neutrophils Percent Auto 71.1 % (50.0-70.0); Platelet Count Result 207 K/mm3 (150-420); Red Blood Count 3.75 M/mm3 (4.70-6.10); Red Cell Distribution Width 17.7 % (11.6-14.4)
[2023-06-05 17:10] LABS: Alanine Aminotransferase 14 U/L (16-63); Albumin Level 3.6 g/dL (3.4-5.0); Alkaline Phosphatase 133 U/L (46-116); Anion Gap 16 mmol/L (8-16); Aspartate Amino Transferase 11 U/L (15-37); Bilirubin,Total 0.5 mg/dL (0.00-1.00); Blood Urea Nitrogen 18 mg/dL (7-18); Calcium 9.3 mg/dL (8.5-10.1); Carbon Dioxide 26 mmol/L (21-32); Chloride 95 mmol/L (98-108); Estimated Glomerular Filt Rate 17; Glucose 154 mg/dL (70-99); Osmolality Calculated 288 mOsm/kg (285-295); Potassium 4.2 mmol/L (3.5-5.1); Sodium 137 mmol/L (136-145); Total Protein 8.9 g/dL (6.4-8.2)
[2023-06-05 17:14] LABS: Troponin I 67.3 ng/L (0.00-60.4)
[2023-06-05 17:32] LABS: Lactic Acid Reflex 2.4 mmol/L (0.4-2.0)
[2023-06-05 17:35] LABS: Lipase 120 U/L (16-77); NT Pro B Type Natriuretic Pept 8736 pg/mL (0-450)
[2023-06-05 19:40] LABS: Troponin I 57.9 ng/L (0.00-60.4)
--- NOTE | 2023-06-05 19:45 | PC.NURSE ---
Dr. Taylor at bedside updating patient and visitor plan for admission due to no inpatient IMU beds at [place].
[2023-06-05 19:47] LABS: Reflex Lactic Acid Yes or No Add Lactic
[2023-06-05 19:56] LABS: Lactic Acid 2.5 mmol/L (0.4-2.0)
--- NOTE | 2023-06-05 21:53 | ADMGEN ---
This patient, Jacob Rahman, was admitted to 2nd Floor Room 205-1. Patient/family oriented to hospital policies and general routines including ID bracelet, bed and alarms, visiting hours, pain management, procedures, bathroom and other care routines, personal items, smoking policy, room service/diet, and visiting hours. Information on how to activate the Rapid Response Team has been discussed. Patient/Family are encouraged to report perceived risks to care and to ask questions if they do not understand what they are told or what they should do.
[2023-06-05] MEDS: rOPINIRole HCL 0.5 MG TABLET PO (22:15)
[2023-06-05] MEDS: HEPARIN SODIUM 5,000 UNITS/ML VIAL 5000 UNITS SUB-Q (22:16)
[2023-06-05] MEDS: carvediloL 3.125 MG TABLET PO (22:16)
[2023-06-06] VITALS: BP 128/54; PULSE 80; RESP 18; TEMP 36.8; O2SAT 97
[2023-06-06 04:00] VITALS: BP 102/54; PULSE 76; RESP 16; TEMP 36.7; O2SAT 97
[2023-06-06 05:55] LABS: Anion Gap 11 mmol/L (8-16); Blood Urea Nitrogen 27 mg/dL (7-18); Calcium 8.6 mg/dL (8.5-10.1); Carbon Dioxide 28 mmol/L (21-32); Chloride 98 mmol/L (98-108); Estimated CRCL calculation 14 ml/min; Estimated Glomerular Filt Rate 11; Glucose 109 mg/dL (70-99); Osmolality Calculated 290 mOsm/kg (285-295); Potassium 4.8 mmol/L (3.5-5.1); Sodium 137 mmol/L (136-145)
--- NOTE | 2023-06-06 06:02 | PC.NURSE ---
Lab called to report critical creatinine of 5.08.
[2023-06-06 06:04] LABS: Troponin I 45.4 ng/L (0.00-60.4)
--- NOTE | 2023-06-06 06:20 | PC.NURSE ---
Dr. Taylor notified of critical creatinine result of 5.08. No new orders at this time.
--- NOTE | 2023-06-06 07:00 | ECG_ITS ---
Measurements Intervals [place] Rate: 66 P: 77 CT: 152 QRS: 61 QRSD: 137 T: 50 QT: 431 QTc: 454 Interpretive Statements SINUS RHYTHM WITH MARKED SINUS ARRHYTHMIA RIGHT BUNDLE BRANCH BLOCK MINIMAL Q WAVES- ANTEROLAT/INF LEADS ABNORMAL ECG COMPARED TO ECG 03/13/2023 07:28:16 NO SIGNIFICANT CHANGES Electronically Signed On 06-06-2023 7:00:14 BATTERY TEST ENGINEER by Enrike Sumner D.O.
[2023-06-06 08:00] VITALS: BP 102/45; PULSE 68; RESP 18; TEMP 36.6; O2SAT 96
[2023-06-06 08:16] LABS: Glucose Point of Care 110 mg/dl (65-105)
[2023-06-06] MEDS: ASPIRIN 81 MG ENTERIC TABLET PO (08:41)
[2023-06-06] MEDS: FOLIC ACID 0.4 MG TABLET PO (08:41)
[2023-06-06 08:42] VITALS: PULSE 68
[2023-06-06] MEDS: OPTI-GEN TAB 1 TABLET PO (08:42)
[2023-06-06] MEDS: ATORVASTATIN 40 MG TABLET PO (08:42)
[2023-06-06] MEDS: carvediloL 3.125 MG TABLET PO (08:42)
[2023-06-06] MEDS: HEPARIN SODIUM 5,000 UNITS/ML VIAL 5000 UNITS SUB-Q (08:43)
[2023-06-06 11:33] LABS: Glucose Point of Care 198 mg/dl (65-105)
[2023-06-06 12:00] VITALS: BP 102/46; PULSE 64; PULSE 78; RESP 18; TEMP 36.1; O2SAT 96
--- NOTE | 2023-06-06 12:21 | PM.IMHP ---
H&P: HPI History of Present Illness Date/Time: 06/06/23 12:21 Chief Complaint: Weakness Narrative: This is a 77 year old male who presented to the hospital on 06/05/23 with complaints of weakness and dizziness after dialysis session. patient states that he is end-stage renal disease on Saturday dialysis. He missed his Saturday dialysis session due to the center being closed for weather. He had cvoq-pd-wliv dialysis sessions on Saturday and Saturday with 4.5 L fluid removal each day. He presented to the hospital after his dialysis on Saturday with these new complaints. Workup in the hospital included a CT of the abdomen pelvis which showed bilateral nonobstructing kidney stones, head CT which was normal, chest x-ray which was normal as well. Labs revealed a normal WBC count 9.0, hemoglobin 12.0, hematocrit 38.9, sodium level of 137, potassium 4.2, chloride 95, BUN 18, creatinine 3.5, EGFR 17, lipase 120, troponin 57.9. On examination today patient is alert oriented x3, sitting in the chair. is at the bedside. Vital signs are stable, he is afebrile, he is currently on room air. He denies any fever, chills, headache, visual changes, lightheadedness, dizziness, shortness of breath, chest pain, abdominal pain, nausea, vomiting, diarrhea. Labs today revealed sodium level of 137, potassium 4.8, chloride 98, BUN 27, creatinine 5.08, EGFR 11, troponin 45.4. his weakness and dizziness could be contributed to fluid shifts during dialysis. Review of Systems Review of Systems: All systems reviewed & are unremarkable except as noted in HPI and below Constitutional: Constitutional: Reports as per HPI and Reports no additional constitutional complaints Eyes: Eyes: Reports as per HPI and Reports no additional eye complaints ENT: Reports system reviewed and no additional complaints, except as documented and Reports as per HPI Cardiovascular: Cardiovascular: Reports as per HPI and Reports no additional cardiovascular complaints Respiratory: Respiratory: Reports as per HPI and Reports no additional respiratory complaints Gastrointestinal: Gastrointestinal: Reports as per HPI and Reports no additional gastrointestinal complaints Genitourinary: Genitourinary: Reports no additional male genitourinary complaints and Reports as per HPI Musculoskeletal: Musculoskeletal: Reports no additional musculoskeletal complaints and Reports as per HPI Integumentary/Breasts: Skin/Breast: Reports system reviewed and no additional complaints, except as docu and Reports as per HPI Neurologic: Reports system reviewed and no additional complaints, except as documented and Reports as per HPI Psychiatric: Psychiatric: Reports no additional psychiatric complaints and Reports as per HPI [facility] Past Medical History Medical History Acute kidney injury superimposed on CKD CAD (coronary artery disease) of bypass graft CKD stage 3 secondary to diabetes Complex sleep apnea syndrome (~2008) COPD (chronic obstructive pulmonary disease) Diabetes Dialysis patient T, TH, Sat HTN (hypertension) Hyperlipidemia Spinal cord compression unable to feel mid-calf and down bilaterally Surgical History Surgical History History of cataract surgery S/P CABG x 2 S/P CABG x 4 Status post tonsillectomy Family History Family History Father Acute myocardial infarction Mother Acute myocardial infarction Social History Social History Smoking status: Former smoker Tobacco type: cigarettes Second hand tobacco smoke exposure: No Additional smoking assessment comments: in in 's Alcohol intake: never Alcohol use details: DRANK SOCIALLY IN HIS 20'S Substance use: current Substance use type: does not use Do You Feel Safe i
[2023-06-06] MEDS: INSULIN GLARGINE (*BKC) 1,000 UNITS/10 ML VIAL 30 UNITS SUB-Q (12:27)
[2023-06-06] MEDS: INSULIN HUMAN LISPRO (*BKC) 1,000 UNITS/10 ML VIAL 14 UNITS SUB-Q (12:27)
--- NOTE | 2023-06-06 12:46 | PM.DS ---
DS: Admitting Diagnosis Discharge Date 06/06/23 Admitting Diagnosis Weakness dizziness end-stage renal disease DS: Discharge Diagnosis Discharge Diagnosis (1) Generalized weakness: Code(s): R53.1 - Weakness Status: Acute (2) Dizziness: Code(s): R42 - Dizziness and giddiness Status: Acute (3) End-stage renal disease (ESRD): Code(s): N18.6 - End stage renal disease Status: Acute DS: Summary Hospital Course Reason for hospitalization: weakness dizziness end-stage renal disease Hospital Course: This is a 77 year old male who presented to the hospital on 06/05/23 with complaints of weakness and dizziness after dialysis session. patient states that he is end-stage renal disease on Saturday dialysis.? He missed his Saturday dialysis session due to the center being closed for weather.? He had nzmx-kg-isje dialysis sessions on Saturday and Saturday with 4.5 L fluid removal each day.? He presented to the hospital after his dialysis on Saturday with these new complaints.? Workup in the hospital? included a CT of the abdomen pelvis which showed bilateral nonobstructing? kidney stones, head CT which was normal, chest x-ray which was normal as well.? Labs revealed a normal? WBC count 9.0, hemoglobin 12.0, hematocrit 38.9, sodium level of 137, potassium 4.2, chloride 95, BUN 18, creatinine 3.5, EGFR 17, lipase 120, troponin 57.9. ? On examination today patient is alert oriented x3, sitting in the chair.? is at the bedside.? Vital signs are stable, he is afebrile, he is currently on room air.? He denies any fever, chills, headache, visual changes, lightheadedness, dizziness, shortness of breath, chest pain, abdominal pain, nausea, vomiting, diarrhea.? Labs today revealed sodium level of 137, potassium 4.8, chloride 98, BUN 27, creatinine 5.08, EGFR 11, troponin 45.4.? his weakness and dizziness could be contributed to fluid shifts during dialysis. final diagnosis: electrolyte imbalance, fluid imbalance, end-stage renal disease Status at Discharge Cognitive/behavioral status at discharge: alert oriented x4 Functional status at discharge: independent ambulation Overall status at discharge: patient is progressing back to baseline Time Spent with Patient Time attestation: Total time spent providing and/or coordinating discharge services: Time spent: Greater than 30 minutes Exam Narrative: General: In no acute distress, well nourished Head: atraumatic, no encephalopathy Eyes: EOMI, PERRLA, sclera clear ENT: moist mucous membranes, nasal passages clear Neck: supple, no JVD, no adenopathy, trachea midline Cardiac: Normal S1 and S2. RRR, Murmur noted, no gallops or friction rubs, peripheral pulses intact. Respiratory: Lungs clear to auscultation, no adventitious lung sounds Gastrointestinal: soft, non-distended, non-tender, normoactive bowel sounds. : ESRD on HD, left forearm fistula Extremities: moves all extremities well, no edema, good ROM, strength 5/5 Skin: clean, dry, intact. No wounds or lesions. Neuro: Alert and oriented x4, cranial nerves intact, no neuro deficits. Psych: normal mood, normal affect, interactive DS: Data Data Completed and Pending Completed studies during hospitalization: CT of the abdomen and pelvis head CT chest x-ray Pending studies at discharge: none Labs on day of discharge: Labs from last 24 hours 06/06/23 06/06/23 06/06/23 11:31 07:56 05:16 WBC RBC Hgb Hct MCV MCH MCHC RDW Plt Count MPV Immature Gran % (Auto) Neut % (Auto) Lymph % (Auto) [place] % (Auto) Eos % (Auto) Baso % (Auto) Lymph # (Auto) [place] # (Auto) Eos # (Auto) Baso # (Auto) Abs Immat Gran (auto) Absolute Neuts (auto) Absolute Nucleated RBC Nucleated RBC % Sodium 137 Potassium 4.8 Chloride 98 Carbon Dioxide 28 Anion Gap 11 BUN 27 H Creatinine 5.08 H* Estim
--- NOTE | 2023-06-06 13:42 | PC.NURSE ---
1330 patient dc to family auto. dc instructions went over with and patient. both vocalize an understanding.
--- NOTE | 2023-06-10 08:40 | PC.NURSE ---
Discharge call back completed, doing well, reports understood dc instructions and doesn't have any questions or concerns regarding instructions or care.
== END 2023-06-06 13:30 | disposition home or self-care (01) ==
LOC: CHSED 19:48 → CHS2ND 06-06 07:20
PROVIDERS: Admitting Provider Internal Medicine; Emergency Provider Internal Medicine Critical Care Medicine; PCP Internal Medicine; Visit Provider Internal Medicine
DX: R53.1 Weakness (principal); R42 Dizziness and giddiness; N17.9 Acute kidney failure, unspecified; I12.0 Hypertensive chronic kidney disease with stage 5 chronic kidney disease or end stage renal disease; E11.22 Type 2 diabetes mellitus with diabetic chronic kidney disease; N18.6 End stage renal disease; Z99.2 Dependence on renal dialysis; N20.0 Calculus of kidney; R79.89 Other specified abnormal findings of blood chemistry; R94.31 Abnormal electrocardiogram [ECG] [EKG]; I25.10 Atherosclerotic heart disease of native coronary artery without angina pectoris; Z95.1 Presence of aortocoronary bypass graft; J44.9 Chronic obstructive pulmonary disease, unspecified; G47.39 Other sleep apnea; Z99.89 Dependence on other enabling machines and devices; G95.20 Unspecified cord compression; Z87.891 Personal history of nicotine dependence; E78.5 Hyperlipidemia, unspecified; Z79.891 Long term (current) use of opiate analgesic; E86.0 Dehydration; Z82.49 Family history of ischemic heart disease and other diseases of the circulatory system; Z79.4 Long term (current) use of insulin; Z79.82 Long term (current) use of aspirin
CPT/HCPCS: 36415; 70450; 71045; 74176; 80048; 80053; 82948; 83605; 83690; 83880; 84484; 85025; 93005; 96372; 99285; A9270; G0378; J1644; J1815

== ENCOUNTER 2023-07-03 08:51 | Outpatient (CLI) | payer MEDICARE, SELFPAY ==
--- NOTE | ~2023-07-03 | XR_ITS ---
Clinical Indication: CHF PA and lateral views of the chest: Comparison: 06/05/2023 Findings: The lungs are clear, without evidence of focal consolidation or pleural effusion. Cardiome diastinal silhouette is within normal limits. Possible pulmonary artery hypertension. Bones and soft tissues are unremarkable. Impression: Clear lungs. Possible pulmonary artery hypertension. Reviewed, dictated and finalized at location . M SPEC Impression: Clear lungs. Possible pulmonary artery hypertension.
[2023-07-03 09:15] LABS: Appearance Urine Cloudy (Clear); Basophils Absolute Auto 0.04 K/mm3 (0.00-0.10); Basophils Percent Auto 0.5 % (0.0-1.0); Bilirubin Urine Negative (Negative); Blood Urine 2+ (Negative); Color Urine Light Yellow (Yellow); Eosinophils Absolute Auto 0.32 K/mm3 (0.02-0.50); Eosinophils Percent Auto 3.8 % (1.0-6.0); Glucose Urine UA Negative (Negative); Hematocrit 36.2 % (37.0-46.0); Hemoglobin 11.6 g/dL (12.4-15.3); Immature Granulocyte Absolute 0.05 K/mm3 (0.00-0.00); Immature Granulocyte Percent A 0.6 % (0.0-0.0); Ketones Urine Negative (Negative); Leukocyte Esterase Ur 3+ (Negative); Lymphocytes Absolute Auto 1.55 K/mm3 (1.10-4.50); Lymphocytes Percent Auto 18.4 % (18.0-42.0); Mean Corpuscular Volume 102.8 fL (78.0-102.0); Mean Platelet Volume 8.9 fl (8.7-11.0); Monocytes Absolute Auto 0.72 K/mm3 (0.10-0.90); Monocytes Percent Auto 8.5 % (2.0-11.0); Neutrophils Absolute Auto 5.8 K/mm3 (1.7-7.2); Neutrophils Percent Auto 68.2 % (50.0-70.0); Nitrate Urine Negative (Negative); Platelet Count Result 197 K/mm3 (150-420); Protein Urine 2+ (Negative); Red Blood Count 3.52 M/mm3 (4.70-6.10); Urobilinogen Urine 0.2 mg/dL (0.2-1.0); White Blood Count 8.4 K/mm3 (4.8-10.8)
[2023-07-03 09:40] LABS: Add Urine Microscopic? YES; Bacteria Urine 2+ /hpf; WBC Urine 31-50 /hpf (0-3)
[2023-07-03 10:22] LABS: Alanine Aminotransferase 18 U/L (16-63); Albumin Level 3.3 g/dL (3.4-5.0); Alkaline Phosphatase 111 U/L (46-116); Amylase 69 U/L (25-115); Anion Gap 15 mmol/L (8-16); Aspartate Amino Transferase 10 U/L (15-37); Bilirubin,Total 0.4 mg/dL (0.00-1.00); Blood Urea Nitrogen 65 mg/dL (7-18); Calcium 8.3 mg/dL (8.5-10.1); Carbon Dioxide 26 mmol/L (21-32); Chloride 96 mmol/L (98-108); Estimated Glomerular Filt Rate 6; Free T3 2.02 pg/mL (2.18-3.98); Free T4 Free Thyroxine 0.89 ng/dL (0.76-1.46); Glucose 169 mg/dL (70-99); Lipase 106 U/L (16-77); NT Pro B Type Natriuretic Pept 5198 pg/mL (0-450); Osmolality Calculated 306 mOsm/kg (285-295); Potassium 5.4 mmol/L (3.5-5.1); Prostate Specific Antigen 9.3 ng/mL (< OR = 4.0); Sodium 137 mmol/L (136-145); Thyroid Stimulating Hormone 1.14 uIU/mL (0.36-3.74); Total Protein 7.1 g/dL (6.4-8.2)
== END 2023-07-03 08:52 | disposition home or self-care (01) ==
LOC: CHSLAB 08:53
PROVIDERS: PCP Internal Medicine; Visit Provider Internal Medicine
DX: R30.0 Dysuria (principal); I50.9 Heart failure, unspecified; R11.0 Nausea; R53.83 Other fatigue; Z12.5 Encounter for screening for malignant neoplasm of prostate; R91.8 Other nonspecific abnormal finding of lung field; R97.20 Elevated prostate specific antigen [PSA]
CPT/HCPCS: 36415; 71046; 80053; 81001; 82150; 83690; 83880; 84153; 84439; 84443; 84481; 85025; 87086; 87088

== ENCOUNTER 2023-08-26 08:17 | Outpatient (CLI) | payer MEDICARE, SELFPAY ==
--- NOTE | 2023-08-26 08:22 | ECHO_ITS ---
Patient Info Name: Jacob Rahman Age: 77 years : 1945 Gender: Male Ht: 70 in Wt: 246 lbs BSA: 2.39 m2 HR: 75 bpm BP: 108 / 49 mmHg Heart Rhythm: Sinus Rhythm Technical Quality: Poor Exam Date: 08/26/2023 8:27 AM Exam Location: Echo Lab Patient Status: Outpatient Admit Date: 08/26/2023 Staff Ordering Physician: Meenu Ventura PA-C Implementation Services Analyst: Shilpa Faustin RDCS Attending Provider: Meenu Ventura PA-C Exam Type: CA echo doppler color flow Study Info Indications - primary central sleep apnea Complete two-dimensional, color flow and Doppler transthoracic echocardiogram is performed. Summary 1. Complete two-dimensional, color flow and Doppler transthoracic echocardiogram is performed. 2. Technically suboptimal study due to poor sonographic images. 3. Left ventricular chamber dimension is normal. 4. Left ventricular systolic function is normal, estimated at 60-65%. 5. The left ventricular diastolic function is grade I diastolic dysfunction. 6. E/e' 15 is elevated. 7. Left atrial chamber dimension is mildly enlarged. 8. The aortic valve is not well visualized. Cannot determine number of aortic valve leaflets. 9. There is severe aortic valve sclerosis. 10. There is no aortic valve stenosis based on valve area. 11. There is trace aortic valve regurgitation. 12. The mitral valve has moderately calcified annulus. 13. No pulmonary hypertension, estimated pulmonary arterial systolic pressure is 14 mmHg. Left Ventricle Technically suboptimal study due to poor sonographic images. Left ventricular chamber dimension is normal. Left ventricular systolic function is normal, estimated at 60-65%. The left ventricular diastolic function is grade I diastolic dysfunction. E/e' 15 is elevated. Right Ventricle Right ventricular chamber dimension is not well visualized. Left Atria Left atrial chamber dimension is mildly enlarged. Right Atria Right atrial chamber dimension is not well visualized. Aortic Valve The aortic valve is not well visualized. Cannot determine number of aortic valve leaflets. There is no aortic valve stenosis based on valve area. There is severe aortic valve sclerosis. There is trace aortic valve regurgitation. Pulmonic Valve There is no pulmonic regurgitation. Mitral Valve The mitral valve has moderately calcified annulus. There is no mitral valve stenosis. There is no mitral valve regurgitation. Tricuspid Valve There is no tricuspid valve regurgitation. No pulmonary hypertension, estimated pulmonary arterial systolic pressure is 14 mmHg. Pericardium/Pleural There is no pericardial effusion. Inferior Vena Cava Normal inferior vena cava with >50% collapse upon inspiration consistent with normal right atrial pressure, 5 mmHg. Aorta The aortic root size at the sinus of Valsalva is normal. Left Ventricular Outflow Tract Name Value Normal LVOT 2D LVOT Diameter 2.1 cm LVOT Doppler LVOT Peak Velocity 120 cm/s LVOT Peak Gradient 3 mmHg LVOT Mean Gradient 2 mmHg LVOT VTI 35 cm LVOT VTI/AV VTI Ratio 0.7
== END 2023-08-26 08:18 | disposition home or self-care (01) ==
LOC: CHSIMG 08:18
PROVIDERS: PCP Internal Medicine; Visit Provider Physician Assistant
DX: G47.31 Primary central sleep apnea (principal); I35.8 Other nonrheumatic aortic valve disorders
CPT/HCPCS: 93306

== ENCOUNTER 2023-09-04 20:02 | Outpatient (CLI) | payer MEDICARE, SELFPAY ==
--- NOTE | 2023-09-15 17:39 | WPDSLEEPSTUD ---
Sleep Study Date of Study: 09/04/23 Ordering Provider: MARK Berry Interpreting Physician: Marylu Milligan MD Sleep Study Type: ASV Height: 1.78 m Weight: 111.584 kg Body Mass Index: 35.3 Neck Circumference (inches): 18.75 [place]: 4 Reason for Sleep Study * most recent titration was 04/26/2021, split night with ASV titration due to recall on his BiPAP machine * 03/27/2019 - echo - EF 60-65% * 02/26/2019- basic sleep study; low sleep efficiency 23.9%, AHI 12.1, no REM was present; limb movements 223.9/hour; repeat titration was recommended; no additional sleep study results. * 10/03/2008- AHI 98.5; ASV BiPAP titration with final pressure of inspiratory pressure minimum 15, inspiratory max pressure 25, expiratory pressure 15 and back up rate 16. * 09/02/2008- Severe complex sleep apnea AHI 98.5 and severe periodic limb movement disorder, PLM index 120; desaturation to 72%, failed CPAP titration. Sleep History Jacob Rahman is a 75 year old man with severe complex sleep apnea, last sleep study was 04/26/2021 due to recall on his BiPAP machine. He has been treated for sleep apnea for more than 20 years. He has not used any device since April 2023 due to the recall on his ASV machine. His BMI is lower now compared to his last sleep study in Apr 2021 when it was 38.4, now 35.3 in August 2023. In Feb 2019, BMI was 44.6. He has a history of severe complex sleep apnea with an AHI of 98.5 with desaturation to 22% and low sleep efficiency, poor response to CPAP and eventual ASV for treatment. He also had severe periodic limb movement disorder with 120 limb movements per hour in 2008 and 223/hour in Feb 2019. He had a significant weight loss before his last study, over a 100 lb weight loss. He started hemodialysis in 2018. He occasionally awakens from sleep feeling short of breath. He frequently awakens at night with heartburn, belching or coughing. He occasionally snores, occasionally snores loudly enough that others complain. He rarely has difficulty sleeping with a cold. He rarely wakes up gasping at night. He occasionally has breathing problems at night observed by others. He does not sweat excessively at night or notices heart pounding or beating irregularly at night. He frequently falls asleep during the day, never falls asleep involuntarily or while driving. He does not have loss of muscle tone with strong emotion. He is retired therefore does not have daytime difficulties due to excessive sleepiness. He does not feel paralyzed on waking or falling asleep nor does he have vivid dreamlike scenes upon awakening or falling asleep. He does not feel afraid to go to sleep. He does not have nightmares. He does not have dream recall. He occasionally has racing thoughts. He does not feel sad or depressed. He occasionally feels anxios. He rarely has muscular tension. He occasionally notices parts of body jerking. He frequently kicks at night and frequently has crawling and aching feelings in his legs at night. He occasionally has leg pain during the night. He does not have morning jaw pain. He does not grind his teeth at night. Occasionally is bothered by pain during the day and occasionally awakened by pain at night. Frequently wakes up feeling stiff in the morning with sore achy muscles. He occasionally wakes up with pain in the neck and spine. He has headaches. Normal bedtime is 10:30 p.m. taking 5-10 min to fall asleep, waking twice at night in the middle of the night, sits up and puts his feet on the floor. His normal wake time is between 6 and 7:00 a.m.. He keeps the same schedule on weekends. He gets 7 hours of sleep at night. He takes naps during the day. A short nap lasting 10-15 minutes may be refreshing. He is usually drowsy for an hour after waking. He feels better in the afternoon compared to other times a day. Habits: Tobacco: quit smoking over 40 years ago Caffeine: 12 oz of iced tea daily Alcohol: none
[2023-09-18 13:00] VITALS: BMI 35.3
== END 2023-09-05 06:20 | disposition home or self-care (01) ==
LOC: CHSCSM 20:03
PROVIDERS: PCP Internal Medicine; Visit Provider Physician Assistant
DX: G47.31 Primary central sleep apnea (principal); G47.61 Periodic limb movement disorder
CPT/HCPCS: 95811

== ENCOUNTER 2023-11-15 16:50 | Emergency (ER) | payer MEDICARE, SELFPAY ==
[2023-11-15] VITALS (24 sets, daily range): BP systolic 92–126; BP diastolic 36–97; PULSE 78–99; RESP 13–24; TEMP 36.2; O2SAT 91–100
--- NOTE | ~2023-11-15 | CT_ITS ---
CT abdomen pelvis wo con Ordering provider: Brett Gabriel MD History: 78 years Male with . Onset x2 days, Low abd. pain/ nausea/ vomiting/ diarrhea . Comparison: June 05, 2023 Technique: CT abdomen and pelvis without IV and without oral contrast. Automated exposure control and iterative reconstruction technique were employed. The dose-length product was 1276.50 mGy-cm. Findings: VISUALIZED LOWER CHEST: Normal. UPPER ABDOMINAL ORGANS: Liver: Normal. Gallbladder: Cholelithiasis Spleen: Normal. Measures 13.6 cm. Stomach/duodenum: Normal. Pancreas: Small hypodensity is seen in the area of the head of the pancreas measuring 1.5 cm. Follow- up advised. Adrenals: Adrenal mass in the left adrenal measuring 1.9 CNM. No Kidneys: slightly atrophic bilaterally. Stones in both renal pelvis unchanged from previous examinati on. PELVIC ORGANS: The bladder is underfilled with thickened wall. BOWEL AND MESENTERY: Colon: No evidence of diverticulitis. Normal appendix. Small Bowel: Normal. No obstruction. Peritoneum/mesentery: No free air or free fluid. No mesenteric lymphadenopathy. RETROPERITONEUM: Compression fracture of L2 unchanged from previous examination Mild atheromatous dis ease of the abdominal aorta. No retroperitoneal lymphadenopathy. MUSCULOSKELETAL: Superficial soft tissues: The superficial soft tissues are normal. Bones: Age appropriate degenerative changes of the spine. IMPRESSION: 1. Slightly atrophic kidneys. Bilateral tiny stones in the renal pelvis unchanged from previous exam ination measuring 4 mm on the right and 3 mm in the left.. 2. No evidence of appendicitis, diverticulitis or intestinal obstruction. 3. Cholelithiasis. 4. Small cystic area in the head of the pancreas area. Unchanged from previous examination. 5. Compression fracture of L2 unchanged from previous examination. Reviewed, dictated and finalized at location A. IMPRESSION: 1. Slightly atrophic kidneys. Bilateral tiny stones in the renal pelvis unchan ged from previous examination measuring 4 mm on the right and 3 mm in the left. . 2. No evidence of appendicitis, diverticulitis or intestinal obstruction. 3. Cholelithiasis. 4. Small cystic area in the head of the pancreas area. Unchanged from previous examination. 5. Compression fracture of L2 unchanged from previous examination.
--- NOTE | ~2023-11-15 | XR_ITS ---
XR chest 1V portable Ordering provider: Brett Gabriel MD History: 78 years Male with . cough . Comparison: July 03 2023 FINDINGS: MEDIASTINUM: The cardiac silhouette is not enlarged. Postoperative changes in the mediastinum. LUNGS: No infiltrates, effusions or pneumothorax. OTHER: No free air under the diaphragm. IMPRESSION: No acute cardiopulmonary pathology. Reviewed, dictated and finalized at location A.
--- NOTE | 2023-11-15 16:56 | ED.WEAKNESS ---
HPI - Weakness General Chief complaint: Weakness Stated complaint: sick to stomach Time Seen by Provider: 11/15/23 16:54 Source: patient Mode of arrival: ambulatory Limitations: no limitations History of Present Illness HPI Narrative: patient is a 78-year-old male with dialysis done today and 3-1/2 L removed. He had near syncope and did not feel well after [address] with [address] dialysis[address] They decided to stop early. No chest pain or shortness of breath. He is having abdominal pain in the lower abdomen with nausea vomiting and some diarrhea. He has not been feeling well actually for the last few days. He is generally weak as well. Dialysis Saturday. Complaint: generalized weakness Onset (ago): day(s) (2) Duration: constant Location: generalized Migration: none Severity: mild Severity scale (1-10): 2 Quality: other ( No quality of pain) Relieving factors: none Exacerbating factors: other ( dialysis made it worse today) Context: other ( dialysis today and felt worse but having abdominal pain and gastric changes for the past 2 days) Associated symptoms: loss of appetite and other ( near syncope today) Related Data Home Medications Medication Instructions Recorded Confirmed insulin glargine 100 unit/mL 60 unit subcut QAM 03/26/19 11/12/23 subcutaneous solution (Lantus U-100 Insulin) insulin lispro 100 unit/mL 15 unit subcut TIDWMEAL 03/26/19 11/12/23 subcutaneous solution (Humalog U-100 Insulin) aspirin 81 mg tablet,delayed 81 mg PO DAILY 04/20/20 11/12/23 release coenzyme Q10 100 mg capsule (Co 100 mg PO DAILY 04/20/20 11/12/23 Q-10) folic acid 400 mcg tablet 0.4 mg PO DAILY 04/20/20 11/12/23 ropinirole 0.5 mg tablet 0.5 mg PO HS 04/20/20 11/12/23 sevelamer carbonate 800 mg tablet 1,600 mg PO BID 04/20/20 11/12/23 (Renvela) carvedilol 3.125 mg tablet 3.125 mg PO BID 06/10/20 11/12/23 atorvastatin 20 mg tablet 20 mg PO DAILY 08/06/23 11/12/23 vitamin B comp no.3-folic acid 1 1 tablet PO DAILY 08/06/23 11/12/23 mg-vit C 60 mg-biotin 300 mcg tablet ([facility]) Allergies Allergy/AdvReac Type Severity Reaction Status Date / Time No Known Allergies Allergy Verified 11/12/23 09:14 Review of Systems Review of Systems: All systems reviewed & are unremarkable except as noted in HPI and below Constitutional: Constitutional: Reports no additional constitutional complaints Eyes: Eyes: Reports no additional eye complaints ENT: Reports system reviewed and no additional complaints, except as documented Cardiovascular: Cardiovascular: Reports no additional cardiovascular complaints Respiratory: Respiratory: Reports no additional respiratory complaints Gastrointestinal: Gastrointestinal: Reports no additional gastrointestinal complaints Genitourinary: Genitourinary: Reports no additional male genitourinary complaints Musculoskeletal: Musculoskeletal: Reports no additional musculoskeletal complaints Integumentary/Breasts: Skin/Breast: Reports system reviewed and no additional complaints, except as docu Neurologic: Reports system reviewed and no additional complaints, except as documented Psychiatric: Psychiatric: Reports no additional psychiatric complaints Endocrine: Endocrine: Reports no additional endocrine complaints Hematologic/Lymphatic: Hematologic/Lymphatic: Reports no additional hematologic/lymphatic complaints Allergic/Immunologic: Allergic/Immunologic: Reports no additional allergic/immunologic complaints PMFSH Past Medical History Medical History CAD (coronary artery disease) of bypass graft Complex sleep apnea syndrome (~2008) COPD (chronic obstructive pulmonary disease) Diabetes Dialysis patient T, TH, Sat HTN (hypertension) Hyperlipidemia Spinal cord compression unable to feel mid-calf and down bilaterally Surgical History Surgical History (Reviewed 11/15/23 @ 19:04 by Brett Morelos
--- NOTE | 2023-11-15 17:45 | ECG_ITS ---
Test Date: 2023-11-15 17:56:02 Measurements Intervals [place] Rate: 86 P: -19 DE: 158 QRS: 61 QRSD: 128 T: -33 QT: 387 QTc: 464 Interpretive Statements SINUS RHYTHM RIGHT BUNDLE BRANCH BLOCK ST-T WAVE ABNORMALITY IN ANTEROLAT/INF LEADS- CONSIDER ISCHEMIA BASELINE ARTIFACT- I, II, III, AVR, AVL ,AVF ABNORMAL ECG No previous ECG available for comparison Electronically Signed On 11-18-2023 10:15:48 CDT by Enrike Sumner D.O.
[2023-11-15 18:14] LABS: Basophils Absolute Auto 0.03 K/mm3 (0.00-0.10); Basophils Percent Auto 0.5 % (0.0-1.0); Eosinophils Absolute Auto 0.16 K/mm3 (0.02-0.50); Eosinophils Percent Auto 2.5 % (1.0-6.0); Hematocrit 37.9 % (37.0-46.0); Hemoglobin 12.4 g/dL (12.4-15.3); Immature Granulocyte Absolute 0.07 K/mm3 (0.00-0.00); Immature Granulocyte Percent A 1.1 % (0.0-0.0); Lymphocytes Absolute Auto 1.04 K/mm3 (1.10-4.50); Lymphocytes Percent Auto 16.4 % (18.0-42.0); Mean Corpuscular HGB Conc 32.7 g/dL (32-36); Mean Corpuscular Hemoglobin 35.2 pg (27.0-31.0); Mean Corpuscular Volume 107.7 fL (78.0-102.0); Mean Platelet Volume 9.3 fl (8.7-11.0); Monocytes Absolute Auto 0.67 K/mm3 (0.10-0.90); Monocytes Percent Auto 10.5 % (2.0-11.0); Neutrophils Absolute Auto 4.39 K/mm3 (1.70-7.20); Platelet Count Result 180 K/mm3 (150-420); Red Blood Count 3.52 M/mm3 (4.70-6.10); Red Cell Distribution Width 16.8 % (11.6-14.4); White Blood Count 6.4 K/mm3 (4.8-10.8)
[2023-11-15 18:26] LABS: Alanine Aminotransferase 11 U/L (16-63); Albumin Level 3.7 g/dL (3.4-5.0); Alkaline Phosphatase 132 U/L (46-116); Anion Gap 11 mmol/L (4-12); Aspartate Amino Transferase 20 U/L (15-37); Bilirubin,Total 0.4 mg/dL (0.00-1.00); Blood Urea Nitrogen 24 mg/dL (7-18); Calcium 9.3 mg/dL (8.5-10.1); Carbon Dioxide 29 mmol/L (21-32); Chloride 96 mmol/L (98-108); Estimated CRCL calculation 17 ml/min; Estimated Glomerular Filt Rate 14; Glucose 220 mg/dL (70-99); Lipase 72 U/L (16-77); Magnesium 2.5 mg/dL (1.8-2.4); Osmolality Calculated 293 mOsm/kg (285-295); Potassium 4.2 mmol/L (3.5-5.1); Sodium 136 mmol/L (136-145); Total Protein 8.6 g/dL (6.4-8.2)
[2023-11-15 18:29] LABS: Lactic Acid Reflex 3.2 mmol/L (0.4-2.0)
[2023-11-15 18:47] LABS: Influenza A QL RT-PCR Negative (Negative); Influenza B QL RT-PCR Negative (Negative); RSV RNA, RT-PCR Negative (Negative); SARS-CoV-2 RNA PCR Negative (Negative)
--- NOTE | 2023-11-15 19:06 | PC.NURSE ---
REPORT TO BOBBY ESTEVEZ
[2023-11-15 20:26] LABS: Troponin I 111.3 ng/L (0.00-60.4)
--- NOTE | 2023-11-15 20:27 | ECG_ITS ---
Test Date: 2023-11-15 20:39:55 Measurements Intervals [place] Rate: 86 P: -19 [place]: 141 QRS: 71 QRSD: 131 T: 234 QT: 389 QTc: 468 Interpretive Statements SINUS RHYTHM RIGHT BUNDLE BRANCH BLOCK ST-T WAVE ABNORMALITY IN ANTEROLAT/INF LEADS- CONSIDER ISCHEMIA BASELINE ARTIFACT- I, II, AVR, AVL, AVF ABNORMAL ECG Compared to ECG 11/15/2023 17:56:02 No significant changes Electronically Signed On 11-18-2023 10:16:49 CDT by Enrike Sumner D.O.
[2023-11-15 21:06] LABS: Reflex Lactic Acid Yes or No Add Lactic
--- NOTE | 2023-11-15 21:18 | PC.NURSE ---
attempted piv multiple times, patient refusing to be stuck anymore at this time. ERP aware. Patient educated on importance of IV, still does not want it at this time, until he gets to a larger facility with more resources.
[2023-11-16] VITALS: PULSE 83
[2023-11-16 00:01] VITALS: BP 97/52; PULSE 81
[2023-11-16 00:19] VITALS: PULSE 82
[2023-11-16 00:42] VITALS: PULSE 84; RESP 20; O2SAT 92
== END 2023-11-16 01:15 | disposition short-term general hospital (02) ==
PROVIDERS: Emergency Provider Emergency Medicine; PCP Internal Medicine
DX: R79.89 Other specified abnormal findings of blood chemistry (principal); I12.0 Hypertensive chronic kidney disease with stage 5 chronic kidney disease or end stage renal disease; N18.6 End stage renal disease; E11.22 Type 2 diabetes mellitus with diabetic chronic kidney disease; E78.5 Hyperlipidemia, unspecified; I25.10 Atherosclerotic heart disease of native coronary artery without angina pectoris; Z79.4 Long term (current) use of insulin; Z79.82 Long term (current) use of aspirin; Z79.899 Other long term (current) drug therapy; Z87.891 Personal history of nicotine dependence; Z20.822 Contact with and (suspected) exposure to COVID-19
CPT/HCPCS: 36415; 71045; 74176; 80053; 83605; 83690; 83735; 84484; 85025; 87637; 93005; 99285

== ENCOUNTER 2024-01-18 19:47 | Outpatient (CLI) | payer MEDICARE, SELFPAY ==
--- NOTE | 2024-01-25 11:42 | WPDSLEEPSTUD ---
Sleep Study Date of Study: 01/18/24 Ordering Provider: Marylu Milligan MD Interpreting Physician: Marylu Milligan MD Sleep Study Type: BiPAP Titration Height: 1.7 m Weight: 111.13 kg Body Mass Index: 38.3 Neck Circumference (inches): 18 [place]: 10 Reason for Sleep Study Long standing complex sleep apnea, has been on ASV * 09/04/2023 - Long standing comple sleep apnea, had been on ASV prior to this study; ASV titration was not successful in establishing an optimal pressure obstructive hypopneas followed by obstructive apneas at lower pressures, with the emergence of central and mixed apneas higher pressures. He needs a full night CPAP titration, transitioning to BiPAP, with a back up rate if indicated, using a sleep aid at the start of the test, and no naps on the day leading up to the titration. * 04/26/2021- split night with ASV titration due to recall on his BiPAP machine * 03/27/2019 - echo - EF 60-65% * 02/26/2019- basic sleep study; low sleep efficiency 23.9%, AHI 12.1, no REM was present; limb movements 223.9/hour; repeat titration was recommended; no additional sleep study results. * 10/03/2008- AHI 98.5; ASV BiPAP titration with final pressure of inspiratory pressure minimum 15, inspiratory max pressure 25, expiratory pressure 15 and back up rate 16. * 09/02/2008- Severe complex sleep apnea AHI 98.5 and severe periodic limb movement disorder, PLM index 120; desaturation to 72%, failed CPAP titration. Sleep History This history is from his 09/04/2023 sleep study. Jacob Rahman is a 78 year old man with severe complex sleep apnea, had a full night ASV titration 09/04/2023 which was not successful, see above. He has been treated for sleep apnea for more than 20 years. He was not using any machine between April 2023 and testing in August 2023 due to the recall on his ASV machine. His BMI was lower in August 2023 25. 2 compared to sleep study in Apr 2021 when it was 38.4. In Feb 2019, BMI was 44.6. He has a history of severe complex sleep apnea with an AHI of 98.5 with desaturation to 22% and low sleep efficiency, poor response to CPAP and eventual ASV for treatment. He also had severe periodic limb movement disorder with 120 limb movements per hour in 2008 and 223/hour in Feb 2019. He had a significant weight loss before his last study, over a 100 lb weight loss. He started hemodialysis in 2019. He occasionally awakens from sleep feeling short of breath. He frequently awakens at night with heartburn, belching or coughing. He occasionally snores, occasionally snores loudly enough that others complain. He rarely has difficulty sleeping with a cold. He rarely wakes up gasping at night. He occasionally has breathing problems at night observed by others. He does not sweat excessively at night or notices heart pounding or beating irregularly at night. He frequently falls asleep during the day, never falls asleep involuntarily or while driving. He does not have loss of muscle tone with strong emotion. He is retired therefore does not have daytime difficulties due to excessive sleepiness. He does not feel paralyzed on waking or falling asleep nor does he have vivid dreamlike scenes upon awakening or falling asleep. He does not feel afraid to go to sleep. He does not have nightmares. He does not have dream recall. He occasionally has racing thoughts. He does not feel sad or depressed. He occasionally feels anxious. He rarely has muscular tension. He occasionally notices parts of body jerking. He frequently kicks at night and frequently has crawling and aching feelings in his legs at night. He occasionally has leg pain during the night. He does not have morning jaw pain. He does not grind his teeth at night. Occasionally is bothered by pain during the day and occasionally awakened by pain at night. Frequently wakes up feeling stiff in the morning with sore achy muscles. He occasionally wakes up with pain in the neck and spine. He has headaches
[2024-02-17 23:35] VITALS: BMI 38.3
== END 2024-01-19 07:01 | disposition home or self-care (01) ==
LOC: CHSCSM 19:52
PROVIDERS: PCP Internal Medicine; Visit Provider Internal Medicine Critical Care Medicine
DX: G47.31 Primary central sleep apnea (principal); G47.61 Periodic limb movement disorder
CPT/HCPCS: 95811